=== PATIENT | female | born 1935 | race Caucasian/White ===

== ENCOUNTER → 2019-02-08 | Outpatient (CLI) | payer MEDICARE, BC ==
--- NOTE | 2019-02-09 10:31 | ECHOF ---
Referral Reason:I35.0 nonrheumatic aortic stenosis MEASUREMENTS -------- HEIGHT: 167.6 cm WEIGHT: 94.3 kg BP: RVIDd: 2.7 cm (< 3.3) IVSd: 1.4 cm (0.6 - 1.1) LVIDd: 3.6 cm (3.9 - 5.3) LVPWd: 1.4 cm (0.6 - 1.1) IVSs: 1.7 cm LVIDs: 1.5 cm LVPWs: 2.1 cm LAESV Index (A-L): 23.59 ml/m Ao Diam: 1.4 cm (2.0 - 3.7) AV Cusp: 1.1 cm (1.5 - 2.6) LA Diam: 2.9 cm (2.7 - 3.8) MV EXCURSION: 10.629 mm (> 18.000) MV EF SLOPE: 85 mm/s (70 - 150) EPSS: 0.2 cm MV E Fernando: 1.05 m/s MV DecT: 243 ms MV A Fernando: 1.24 m/s MV E/A Ratio: 0.84 AV maxP.80 mmHg AV meanP.46 mmHg RAP: 5.00 mmHg RVSP: 21.31 mmHg TAPSE: 23.43 mm FINDINGS -------- Sinus rhythm. This was a technically adequate study. The left ventricular size is normal. There is moderate concentric left ventricular hypertrophy. O verall left ventricular systolic function is normal with, an EF between 55 - 60 %. The right ventricle is normal in size. Normal LA size by volume 22+/-6 ml/m2. The right atrial size is normal. There is mild aortic valve sclerosis. There is mild aortic stenosis present. Peak/mean gradient a cross the Aortic Valve is 35.80mmHg / 20.46mmHg. Mild mitral annular calcification present. Mild mitral regurgitation is present. The tricuspid valve appears structurally normal. Mild tricuspid regurgitation present. Right vent ricular systolic pressure is normal at < 35 mmHg. The right ventricular systolic pressure, as measu red by Doppler, is 21.31mmHg. There is no pulmonic regurgitation present. The aortic root size is normal. Normal inferior vena cava with normal inspiratory collapse consistent with estimated right atrial pre ssure of 5 mmHg. There is no pericardial effusion. CONCLUSIONS -------- 1. Sinus rhythm. 2. The left ventricular size is normal. 3. There is moderate concentric left ventricular hypertrophy. 4. Overall left ventricular systolic function is normal with, an EF between 55 - 60 %. 5. Normal LA size by volume 22+/-6 ml/m2. 6. There is mild aortic valve sclerosis. 7. There is mild aortic stenosis present. 8. Peak/mean gradient across the Aortic Valve is 35.80mmHg / 20.46mmHg. 9. Mild mitral annular calcification present. 10. Mild mitral regurgitation is present. 11. Mild tricuspid regurgitation present. 12. Right ventricular systolic pressure is normal at < 35 mmHg. 13. There is no pulmonic regurgitation present. 14. There is no pericardial effusion. TEAM PRIMARY CARE PHYSICIAN: Gabby Moctezuma RDCS
== END | disposition home or self-care (01) ==
LOC: RADECHMAIN 12:55
PROVIDERS: ATTEND Internal Medicine
DX: I08.3 Combined rheumatic disorders of mitral, aortic and tricuspid valves (principal)
CPT/HCPCS: 93306

== ENCOUNTER → 2020-10-16 | Outpatient (CLI) | payer MEDICARE, BC ==
--- NOTE | 2020-10-17 10:41 | ECHOF ---
Referral Reason:I35.0 Nonrheumatic aortic (valve) stenosis MEASUREMENTS -------- HEIGHT: 167.6 cm WEIGHT: 90.7 kg BP: IVSd: 1.4 cm (0.6 - 1.1) LVIDd: 3.5 cm (3.9 - 5.3) LVPWd: 1.7 cm (0.6 - 1.1) IVSs: 2.0 cm LVIDs: 1.8 cm LVPWs: 2.0 cm LAESV Index (A-L): 13.46 ml/m Ao Diam: 3.3 cm (2.0 - 3.7) AV Cusp: 1.0 cm (1.5 - 2.6) LA Diam: 3.5 cm (2.7 - 3.8) MV EXCURSION: 14.230 mm (> 18.000) MV EF SLOPE: 65 mm/s (70 - 150) EPSS: 1.6 cm MV E Fernando: 0.99 m/s MV DecT: 341 ms MV A Fernando: 1.37 m/s MV E/A Ratio: 0.72 AV maxP.18 mmHg AV meanP.80 mmHg RAP: 5.00 mmHg RVSP: 40.13 mmHg FINDINGS -------- This was a technically adequate study. The left ventricular size is normal. There is moderate concentric left ventricular hypertrophy. O verall left ventricular systolic function is normal with, an EF between 55 - 60 %. The diastolic fi lling pattern is normal for the age of the patient {E/E'}. The right ventricle is normal in size. The left atrial size is normal. Normal LA size by volume 22+/-6 ml/m2. The right atrial size is normal. Aortic valve is trileaflet and is moderately thickened. There is moderate aortic stenosis present. Peak/mean gradient across the Aortic Valve is 44.18mmHg / 26.80mmHg. The mitral valve is normal. Mild mitral regurgitation is present. The tricuspid valve appears structurally normal. Mild tricuspid regurgitation present. Right vent ricular systolic pressure is normal at < 35 mmHg. There is no pulmonic regurgitation present. The aortic root size is normal. Normal inferior vena cava with normal inspiratory collapse consistent with estimated right atrial pre ssure of 5 mmHg. There is no pericardial effusion. CONCLUSIONS -------- 1. The left ventricular size is normal. 2. There is moderate concentric left ventricular hypertrophy. 3. Overall left ventricular systolic function is normal with, an EF between 55 - 60 %. 4. The diastolic filling pattern is normal for the age of the patient {E/E'} 5. Aortic valve is trileaflet and is moderately thickened. 6. There is moderate aortic stenosis present. 7. Peak/mean gradient across the Aortic Valve is 44.18mmHg / 26.80mmHg. 8. Mild mitral regurgitation is present. 9. Mild tricuspid regurgitation present. 10. There is no pericardial effusion. AIR TABLE OPERATOR: Gabby Moctezuma RDCS
== END | disposition home or self-care (01) ==
LOC: RADECHMAIN 14:28
PROVIDERS: ATTEND Internal Medicine
DX: I08.3 Combined rheumatic disorders of mitral, aortic and tricuspid valves (principal)
CPT/HCPCS: 93306

== ENCOUNTER 2020-11-22 10:31 | Inpatient (IN) | payer MEDICARE, BC ==
[2020-11-22] MEDS ORDERED: SODIUM CHLORIDE 0.9% 500 ML 500 ML IV STA (11:28)
[2020-11-22] MEDS ORDERED: SODIUM CHLORIDE 0.9% 1,000 ML IV STA (11:28)
--- NOTE | 2020-11-22 11:42 | ED ---
Dizziness HPI - General Chief Complaint: Syncope Stated Complaint: Syncope, weakness Time Seen by Provider: 11/22/20 11:04 Source: patient, family, RN notes reviewed Mode of arrival: wheelchair Limitations: no limitations - History of Present Illness Initial Comments: 85-year-old female brought in by family due to a single blood cell this morning. The patient was walking down a hallway at her home when she became lightheaded and passed out for about 10 seconds. No injury sustained. She had thought she heard somebody on a roof. She also does relate that she has some bright red blood per rectum yesterday. None reported today. No abdominal pain she had no palpitations fevers chills nausea vomiting sweats no focal weakness. Patient has had approximately 30 pound weight loss over last 5 weeks on the diet that she's on. MD Complaint: other - Related Data Allergies Allergy/AdvReac Type Severity Reaction Status Date / Time No Known Allergies Allergy Verified 11/22/20 10:52 Review of Systems ROS Statement: Those systems with pertinent positive or pertinent negative responses have been documented in the HPI. ROS Other: All systems not noted in ROS Statement are negative. Past Medical History Past Medical History: Hypertension Additional Past Medical History / Comment(s): poor historian History of Any Multi-Drug Resistant Organisms: None Reported Past Surgical History: Cholecystectomy Smoking Status: Former smoker Past Alcohol Use History: None Reported Past Drug Use History: None Reported General Exam - General Exam Comments Initial Comments: This is a well-developed well-nourished awake alert oriented 3 female Limitations: no limitations General appearance: alert, in no apparent distress Head exam: Present: atraumatic, normocephalic, normal inspection Eye exam: Present: normal appearance, PERRL, EOMI. Absent: scleral icterus, conjunctival injection, periorbital swelling ENT exam: Present: normal exam, mucous membranes moist Neck exam: Present: normal inspection. Absent: tenderness, meningismus, lymphadenopathy Respiratory exam: Present: normal lung sounds bilaterally. Absent: respiratory distress, wheezes, rales, rhonchi, stridor Cardiovascular Exam: Present: regular rate, normal rhythm, normal heart sounds. Absent: systolic murmur, diastolic murmur, rubs, gallop, clicks GI/Abdominal exam: Present: soft, normal bowel sounds. Absent: distended, tenderness, guarding, rebound, rigid Rectal exam: Present: normal inspection, other (Brown colored stool Hemoccult pending) Extremities exam: Present: normal inspection, full ROM, normal capillary refill. Absent: tenderness, pedal edema, joint swelling, calf tenderness Back exam: Present: normal inspection Neurological exam: Present: alert, oriented X3, CN II-XII intact Psychiatric exam: Present: normal affect, normal mood Skin exam: Present: warm, dry, intact, normal color. Absent: rash Course Vital Signs 11/22/20 11/22/20 10:46 11:28 Pulse Rate 68 63 Pulse Rate [ 63 Sitting Pulse Oximetery] Respiratory 18 18 Rate Blood Pressure 113/68 109/54 O2 Sat by Pulse 96 97 Oximetry EKG Findings - EKG Results: EKG: interpreted by KAM, sinus rhythm (Sinus rhythm with frequent ABCs unifocal. Ventricular rate 69. Interval 148 QRS duration 72 QT since QTC 410/439 low-voltage QRS) Medical Decision Making - Medical Decision Making I did discuss findings with the patient she will be admitted or IV fluids IV antibiotics is with Dr. Lucero - Lab Data Result diagrams: 11/22/20 12:00 11/22/20 12:00 Lab Results 11/22/20 11/22/20 11/22/20 Range/Units 12:00 12:00 12:00 WBC 13.2 H (3.8-10.6) k/uL RBC 5.38 (3.80-5.40) m/uL Hgb 16.8 H (11.4-16.0) gm/dL Hct 51.1 H (34.0-46.0) % MCV 94.8 (80.0-100.0) fL MCH 31.2 (25.0-35.0) pg MCHC 32.9 (31.0-37.0) g/dL RDW 13.7 (11.5-15.5) % Plt Count 247 (150-450) k/uL MPV 10.1 Neutrophils % 74 % Lymphocytes % 17 % Monocytes % 6 % Eosinophils % 1 % Basophils % 1 % Neutrophils # 9.8 H (1.3-7.7) k/uL Lymphocytes # 2.2 (1.0-4.8) k/uL Monocytes # 0.8 (0-1.0) k/uL Eosinophils # 0.1 (0-0.7) k/uL Basophils # 0.1 (0-0.2) k/uL PT 10.3 (9.0-12.0) sec INR 1.0 (<1.2) APTT 22.6 (22.0-30.0) sec D-Dimer 0.73 H (<0.60) mg/L FEU Sodium (137-145) mmol/L Potassium (3.5-5.1) mmol/L Chloride (98-107) mmol/L Carbon Dioxide (22-30) mmol/L Anion Gap mmol/L BUN (7-17) mg/dL Creatinine (0.52-1.04) mg/dL Est GFR (CKD-EPI)AfAm (>60 ml/min/1.73 sqM) Est GFR (CKD-EPI)NonAf (>60 ml/min/1.73 sqM) Glucose (74-99) mg/dL Calcium (8.4-10.2) mg/dL Magnesium (1.6-2.3) mg/dL Total Bilirubin (0.2-1.3) mg/dL AST (14-36) U/L ALT (4-34) U/L Alkaline Phosphatase (38-126) U/L Troponin I (0.000-0.034) ng/mL Total Protein (6.3-8.2) g/dL Albumin (3.5-5.0) g/dL Urine Color Urine Appearance (Clear) Urine pH (5.0-8.0) Ur Specific Howells (1.001-1.035) Urine Protein (Negative) Urine Glucose (UA) (Negative) Urine Ketones (Negative) Urine Blood (Negative) Urine Nitrite (Negative) Urine Bilirubin (Negative) Urine Urobilinogen (<2.0) mg/dL Ur Leukocyte Esterase (Negative) Urine RBC (0-5) /hpf Urine WBC (0-5) /hpf Urine WBC Clumps (None) /hpf Ur Squamous Epith Cells (0-4) /hpf Urine Bacteria (None) /hpf Hyaline Casts (0-2) /lpf Urine Mucus (None) /hpf Urine Yeast (Budding) (None) /hpf Stool Occult Blood Negative (Negative) 11/22/20 11/22/20 11/22/20 Range/Units 12:00 12:00 12:00 WBC (3.8-10.6) k/uL RBC (3.80-5.40) m/uL Hgb (11.4-16.0) gm/dL Hct (34.0-46.0) % MCV (80.0-100.0) fL MCH (25.0-35.0) pg MCHC (31.0-37.0) g/dL RDW (11.5-15.5) % Plt Count (150-450) k/uL MPV Neutrophils % % Lymphocytes % % Monocytes % % Eosinophils % % Basophils % % Neutrophils # (1.3-7.7) k/uL Lymphocytes # (1.0-4.8) k/uL Monocytes # (0-1.0) k/uL Eosinophils # (0-0.7) k/uL Basophils # (0-0.2) k/uL PT (9.0-12.0) sec INR (<1.2) APTT (22.0-30.0) sec D-Dimer (<0.60) mg/L FEU Sodium 131 L (137-145) mmol/L Potassium 5.1 (3.5-5.1) mmol/L Chloride 94 L (98-107) mmol/L Carbon Dioxide 24 (22-30) mmol/L Anion Gap 13 mmol/L BUN 59 H (7-17) mg/dL Creatinine 1.62 H (0.52-1.04) mg/dL Est GFR (CKD-EPI)AfAm 33 (>60 ml/min/1.73 sqM) Est GFR (CKD-EPI)NonAf 29 (>60 ml/min/1.73 sqM) Glucose 91 (74-99) mg/dL Calcium 10.0 (8.4-10.2) mg/dL Magnesium 2.3 (1.6-2.3) mg/dL Total Bilirubin 0.9 (0.2-1.3) mg/dL AST 40 H (14-36) U/L ALT 47 H (4-34) U/L Alkaline Phosphatase 143 H (38-126) U/L Troponin I <0.012 (0.000-0.034) ng/mL Total Protein 6.8 (6.3-8.2) g/dL Albumin 4.0 (3.5-5.0) g/dL Urine Color Yellow Urine Appearance Cloudy H (Clear) Urine pH 5.0 (5.0-8.0) Ur Specific Howells 1.011 (1.001-1.035) Urine Protein Trace H (Negative) Urine Glucose (UA) Negative (Negative) Urine Ketones 1+ H (Negative) Urine Blood Trace H (Negative) Urine Nitrite Positive H (Negative) Urine Bilirubin Negative (Negative) Urine Urobilinogen <2.0 (<2.0) mg/dL Ur Leukocyte Esterase Large H (Negative) Urine RBC 7 H (0-5) /hpf Urine WBC >182 H (0-5) /hpf Urine WBC Clumps Many H (None) /hpf Ur Squamous Epith Cells 1 (0-4) /hpf Urine Bacteria Many H (None) /hpf Hyaline Casts 10 H (0-2) /lpf Urine Mucus Rare H (None) /hpf Urine Yeast (Budding) Rare H (None) /hpf Stool Occult Blood (Negative) - Radiology Data Radiology results: report reviewed (Imaging reviewed no definite acute findings), image reviewed Disposition Clinical Impression: Syncope and collapse, Urinary tract infection, Acute kidney injury, Dehydration Disposition: ADMITTED IP TO THIS [facility] Condition: Fair Referrals: Usha Novak MD [Primary Care Provider] - 1-2 days
--- NOTE | 2020-11-22 12:26 | XR ---
EXAMINATION TYPE: XR chest 2V DATE OF EXAM: 11/22/2020 COMPARISON: None HISTORY: Syncope TECHNIQUE: Frontal and lateral views of the chest are obtained. FINDINGS: There is no focal air space opacity, pleural effusion, or pneumothorax seen. The cardiac silhouette size is within normal limits. The osseous structures are intact. IMPRESSION: No acute cardiopulmonary process.
[2020-11-22 12:38] LABS: Basophils # (A) 0.1 k/uL (0-0.2); Basophils % (A) 1 %; Eosinophils # (A) 0.1 k/uL (0-0.7); Eosinophils % (A) 1 %; HCT 51.1 % (34.0-46.0); HGB 16.8 gm/dL (11.4-16.0); Lymphocytes # (A) 2.2 k/uL (1.0-4.8); Lymphocytes % (A) 17 %; MCH 31.2 pg (25.0-35.0); MCHC 32.9 g/dL (31.0-37.0); MCV 94.8 fL (80.0-100.0); Mean Platelet Volume 10.1; Monocytes # (A) 0.8 k/uL (0-1.0); Monocytes % (A) 6 %; Neutrophils # (A) 9.8 k/uL (1.3-7.7); Neutrophils % (A) 74 %; Platelet Count 247 k/uL (150-450); RBC 5.38 m/uL (3.80-5.40); RDW 13.7 % (11.5-15.5); WBC 13.2 k/uL (3.8-10.6)
[2020-11-22 12:47] LABS: Magnesium 2.3 mg/dL (1.6-2.3); Potassium 5.1 mmol/L (3.5-5.1); Total Bilirubin 0.9 mg/dL (0.2-1.3); Total Protein 6.8 g/dL (6.3-8.2)
[2020-11-22 12:57] LABS: Partial Thromboplastin Time 22.6 sec (22.0-30.0); Prothrombin Time 10.3 sec (9.0-12.0)
[2020-11-22 13:49] LABS: Appearance,Urine Cloudy (Clear); Bacteria,Urine Many /hpf; Bilirubin,Urine Negative (Negative); Blood,Urine Trace (Negative); Budding Yeast,Urine Rare /hpf; Color,Urine Yellow; Glucose,Urine (UA) Negative (Negative); Hyaline Casts,Urine 10 /lpf (0-2); Ketones,Urine 1+ (Negative); Leukocyte Esterase,Urine Large (Negative); Mucus,Urine Rare /hpf; Nitrite,Urine Positive (Negative); Protein,Urine Trace (Negative); RBC,Urine 7 /hpf (0-5); Specific Gravity,Urine 1.011 (1.001-1.035); Squamous Epithelial Cell,Urine 1 /hpf (0-4); Urobilinogen,Urine <2.0 mg/dL (<2.0); WBC,Urine >182 /hpf (0-5)
[2020-11-22] MEDS ORDERED: cefTRIAXone IN SWFI 1,000 MG/10 ML SYRINGE IVP STA (14:43)
[2020-11-22] MEDS ORDERED: ACETAMINOPHEN TAB 325 MG TAB PO PRN (14:54)
[2020-11-22] MEDS ORDERED: NALOXONE 0.4 MG/ML 1 ML VIAL IV PRN (14:54)
[2020-11-22] MEDS: SODIUM CHLORIDE 0.9% 1,000 ML IV SCH ×2 (15:38→23:31)
--- NOTE | 2020-11-22 17:47 | P.HPIM ---
History of Present Illness H&P Date: 11/22/20 Chief Complaint: Syncope 85-year-old woman with medical history of hypertension, hyperlipidemia, hypothyroidism presented after syncopal episode. Patient seems to perseverate on the fact that her primary care provider put her on a note carb diet and the patient has lost 30 pounds and feels weak from this. However, it seems according to documentation, her family brought her in after she had a syncopal episode at home. Patient was then felt to have a urinary tract infection of the emergency room, prompting admission for observation. Patient denies fevers, chills, vomiting, abdominal pain, dysuria, dyschezia, constipation, diarrhea, numbness of extremity is. Patient does report some nausea. Review of Systems All Systems reviewed and pertinent positives and negatives noted in HPI, all other symptoms are negative Past Medical History Past Medical History: Hypertension Additional Past Medical History / Comment(s): poor historian History of Any Multi-Drug Resistant Organisms: None Reported Past Surgical History: Cholecystectomy Smoking Status: Former smoker Past Alcohol Use History: None Reported Past Drug Use History: None Reported Medications and Allergies Home Medications Medication Instructions Recorded Confirmed Type Ascorbic Acid [Vitamin C] 500 mg PO DAILY 11/22/20 11/22/20 History Aspirin EC [Ecotrin Low Dose] 81 mg PO DAILY 11/22/20 11/22/20 History Atorvastatin [Lipitor] 40 mg PO DAILY 11/22/20 11/22/20 History Cholecalciferol [Vitamin D3 (25 50 mcg PO DAILY 11/22/20 11/22/20 History Mcg = 1000 Iu)] Levothyroxine Sodium 88 mcg PO MOTUWETHFR 11/22/20 11/22/20 History Levothyroxine Sodium 132 mcg PO SUSA 11/22/20 11/22/20 History Losartan Potassium 100 mg PO DAILY 11/22/20 11/22/20 History Metoprolol Succinate [Toprol XL] 25 mg PO DAILY 11/22/20 11/22/20 History Multivitamins, Thera [Multivitamin 1 tab PO DAILY 11/22/20 11/22/20 History (formulary)] Spironolactone [Aldactone] 50 mg PO DAILY 11/22/20 11/22/20 History hydroCHLOROthiazide 25 mg PO DAILY 11/22/20 11/22/20 History Allergies Allergy/AdvReac Type Severity Reaction Status Date / Time No Known Allergies Allergy Verified 11/22/20 15:11 Physical Exam Osteopathic Statement: *. No significant issues noted on an osteopathic structural exam other than those noted in the History and Physical/Consult. Vitals: Vital Signs Temp Pulse Pulse Pulse Resp BP BP 11/22/20 17:17 97.6 F 84 123/73 11/22/20 16:26 73 18 101/60 11/22/20 11:28 63 63 18 109/54 11/22/20 10:46 68 18 113/68 Pulse Ox 11/22/20 17:17 96 11/22/20 16:26 95 11/22/20 11:28 97 11/22/20 10:46 96 Intake and Output 11/22/20 11/22/20 11/22/20 06:59 14:59 22:59 Other: Weight 78.018 kg Gen: awake, alert HEENT: normocephalic, atraumatic, good hearing acuity, moist mucous membranes Resp: good air exchange, breathing comfortably with no accessory muscle use, clear to auscultation bilaterally CVS: good distal perfusion x 4, regular rhythm, normal rate, no murmurs GI: soft, NTTP, ND : no SPT, no CVAT, lees catheter not present MSK: no pitting edema, no clubbing Neuro: non-focal, moving all extremities Psych: cooperative, euthymic mood Results CBC & Chem 7: 11/22/20 12:00 11/22/20 12:00 Labs: Abnormal Lab Results - Last 24 Hours (Table) 11/22/20 11/22/20 11/22/20 Range/Units 12:00 12:00 12:00 WBC 13.2 H (3.8-10.6) k/uL Hgb 16.8 H (11.4-16.0) gm/dL Hct 51.1 H (34.0-46.0) % Neutrophils # 9.8 H (1.3-7.7) k/uL D-Dimer 0.73 H (<0.60) mg/L FEU Sodium (137-145) mmol/L Chloride (98-107) mmol/L BUN (7-17) mg/dL Creatinine (0.52-1.04) mg/dL AST (14-36) U/L ALT (4-34) U/L Alkaline Phosphatase (38-126) U/L Urine Appearance Cloudy H (Clear) Urine Protein Trace H (Negative) Urine Ketones 1+ H (Negative) Urine Blood Trace H (Negative) Urine Nitrite Positive H (Negative) Ur Leukocyte Esterase Large H (Negative) Urine RBC 7 H (0-5) /hpf Urine WBC >182 H (0-5) /hpf Urine WBC Clumps Many H (None) /hpf Urine Bacteria Many H (None) /hpf Hyaline Casts 10 H (0-2) /lpf Urine Mucus Rare H (None) /hpf Urine Yeast (Budding) Rare H (None) /hpf 11/22/20 Range/Units 12:00 WBC (3.8-10.6) k/uL Hgb (11.4-16.0) gm/dL Hct (34.0-46.0) % Neutrophils # (1.3-7.7) k/uL D-Dimer (<0.60) mg/L FEU Sodium 131 L (137-145) mmol/L Chloride 94 L (98-107) mmol/L BUN 59 H (7-17) mg/dL Creatinine 1.62 H (0.52-1.04) mg/dL AST 40 H (14-36) U/L ALT 47 H (4-34) U/L Alkaline Phosphatase 143 H (38-126) U/L Urine Appearance (Clear) Urine Protein (Negative) Urine Ketones (Negative) Urine Blood (Negative) Urine Nitrite (Negative) Ur Leukocyte Esterase (Negative) Urine RBC (0-5) /hpf Urine WBC (0-5) /hpf Urine WBC Clumps (None) /hpf Urine Bacteria (None) /hpf Hyaline Casts (0-2) /lpf Urine Mucus (None) /hpf Urine Yeast (Budding) (None) /hpf Assessment and Plan Assessment: Complicated urinary tract infection Acute kidney injury Syncope Dehydration -Admit to observation -IV fluids -Ceftriaxone -Tylenol -Follow up urine culture -Daily BMP -Orthostatics Hypertension Hyperlipidemia Hypothyroidism -Home medications reviewed and reconciled Patient is a full code
[2020-11-23] MEDS: SODIUM CHLORIDE 0.9% 1,000 ML IV SCH ×2 (05:40→14:21)
[2020-11-23] MEDS ORDERED: LEVOTHYROXINE 88 MCG TAB PO SCH (06:30)
[2020-11-23] MEDS: ASCORBIC ACID 500 MG TAB PO SCH (07:50)
[2020-11-23] MEDS: ATORVASTATIN 40 MG TAB PO SCH (07:50)
[2020-11-23] MEDS: ASPIRIN 81 MG PO SCH (07:50)
[2020-11-23] MEDS: MULTIVITAMINS, THERA 1 EACH TAB PO SCH (07:50)
[2020-11-23] MEDS: SPIRONOLACTONE 25 MG TAB PO SCH (07:50)
[2020-11-23] MEDS: CHOLECALCIFEROL 25 MCG (1000 IU) TABLET PO SCH (07:51)
[2020-11-23] MEDS: METOPROLOL SUCCINATE (ER) 25 MG TAB.ER.24H PO SCH (07:51)
[2020-11-23] MEDS ORDERED: cefTRIAXone IN SWFI 1,000 MG/10 ML SYRINGE IVP SCH (09:00)
[2020-11-23] MEDS: LOSARTAN 50 MG TAB PO SCH (09:34)
--- NOTE | 2020-11-23 10:42 | P.PN ---
Subjective Progress Note Date: 11/23/20 No new complaints today. Pt ambulating to and from bathroom well. She was able to eat 50% of breakfast. Objective - Vital Signs Vital signs: Vital Signs Temp 97.7 F 11/23/20 07:00 Pulse 73 11/23/20 07:00 Resp 18 11/23/20 07:00 BP 111/71 11/23/20 07:00 Pulse Ox 94 L 11/23/20 07:00 Intake & Output 11/22/20 11/23/20 11/23/20 18:59 06:59 18:59 Intake Total 120 200 120 Balance 120 200 120 Weight 78.018 kg Intake: Oral 120 200 120 Other: Voiding Method Toilet Toilet # Voids 1 - Exam Gen: awake, alert HEENT: normocephalic, atraumatic, good hearing acuity, moist mucous membranes Resp: good air exchange, breathing comfortably with no accessory muscle use, clear to auscultation bilaterally CVS: good distal perfusion x 4, regular rhythm, normal rate, no murmurs GI: soft, NTTP, ND : no SPT, no CVAT, lees catheter not present MSK: no pitting edema, no clubbing Neuro: non-focal, moving all extremities Psych: cooperative, euthymic mood - Labs CBC & Chem 7: 11/22/20 12:00 11/22/20 12:00 Labs: Abnormal Lab Results - Last 24 Hours (Table) 11/22/20 11/22/20 11/22/20 Range/Units 12:00 12:00 12:00 WBC 13.2 H (3.8-10.6) k/uL Hgb 16.8 H (11.4-16.0) gm/dL Hct 51.1 H (34.0-46.0) % Neutrophils # 9.8 H (1.3-7.7) k/uL D-Dimer 0.73 H (<0.60) mg/L FEU Sodium (137-145) mmol/L Chloride (98-107) mmol/L BUN (7-17) mg/dL Creatinine (0.52-1.04) mg/dL AST (14-36) U/L ALT (4-34) U/L Alkaline Phosphatase (38-126) U/L Urine Appearance Cloudy H (Clear) Urine Protein Trace H (Negative) Urine Ketones 1+ H (Negative) Urine Blood Trace H (Negative) Urine Nitrite Positive H (Negative) Ur Leukocyte Esterase Large H (Negative) Urine RBC 7 H (0-5) /hpf Urine WBC >182 H (0-5) /hpf Urine WBC Clumps Many H (None) /hpf Urine Bacteria Many H (None) /hpf Hyaline Casts 10 H (0-2) /lpf Urine Mucus Rare H (None) /hpf Urine Yeast (Budding) Rare H (None) /hpf 11/22/20 Range/Units 12:00 WBC (3.8-10.6) k/uL Hgb (11.4-16.0) gm/dL Hct (34.0-46.0) % Neutrophils # (1.3-7.7) k/uL D-Dimer (<0.60) mg/L FEU Sodium 131 L (137-145) mmol/L Chloride 94 L (98-107) mmol/L BUN 59 H (7-17) mg/dL Creatinine 1.62 H (0.52-1.04) mg/dL AST 40 H (14-36) U/L ALT 47 H (4-34) U/L Alkaline Phosphatase 143 H (38-126) U/L Urine Appearance (Clear) Urine Protein (Negative) Urine Ketones (Negative) Urine Blood (Negative) Urine Nitrite (Negative) Ur Leukocyte Esterase (Negative) Urine RBC (0-5) /hpf Urine WBC (0-5) /hpf Urine WBC Clumps (None) /hpf Urine Bacteria (None) /hpf Hyaline Casts (0-2) /lpf Urine Mucus (None) /hpf Urine Yeast (Budding) (None) /hpf Assessment and Plan Assessment: Complicated urinary tract infection Acute kidney injury Syncope Dehydration -Admit to observation -IV fluids -Ceftriaxone -Tylenol -Follow up urine culture -Daily BMP -Orthostatics Hypertension Hyperlipidemia Hypothyroidism -Home medications reviewed and reconciled Patient is a full code
[2020-11-24] MEDS: SODIUM CHLORIDE 0.9% 1,000 ML IV SCH ×4 (00:26→22:01)
[2020-11-24] MEDS: METOPROLOL SUCCINATE (ER) 25 MG TAB.ER.24H PO SCH (08:15)
[2020-11-24] MEDS: ATORVASTATIN 40 MG TAB PO SCH (08:15)
[2020-11-24] MEDS: SPIRONOLACTONE 25 MG TAB PO SCH (08:15)
[2020-11-24] MEDS: LEVOTHYROXINE 88 MCG TAB PO SCH (08:15)
[2020-11-24] MEDS: ASPIRIN 81 MG PO SCH (08:15)
[2020-11-24] MEDS: LOSARTAN 50 MG TAB PO SCH (08:16)
[2020-11-24] MEDS: CHOLECALCIFEROL 25 MCG (1000 IU) TABLET PO SCH (08:16)
[2020-11-24] MEDS: MULTIVITAMINS, THERA 1 EACH TAB PO SCH (08:16)
[2020-11-24] MEDS: ASCORBIC ACID 500 MG TAB PO SCH (08:16)
--- NOTE | 2020-11-24 14:06 | P.PN ---
Subjective Progress Note Date: 11/24/20 No new complaints today. Pt ambulating to and from bathroom well with min assist, but instability of gait. PT consult pending. Pt would likely benefit from supervision on dc with either family or HALFWAY. Family discussing this amongst themselves, also pending PT evaluation for further consideration. Objective - Vital Signs Vital signs: Vital Signs Temp 97.5 F L 11/24/20 07:00 Pulse 67 11/24/20 07:00 Resp 16 11/24/20 08:00 BP 109/66 11/24/20 07:00 Pulse Ox 94 L 11/24/20 07:00 Intake & Output 11/23/20 11/24/20 11/24/20 18:59 06:59 18:59 Intake Total 360 300 416 Balance 360 300 416 Intake: Oral 360 300 416 Other: Voiding Method Toilet Toilet # Voids 2 3 - Exam Gen: awake, alert HEENT: normocephalic, atraumatic, good hearing acuity, moist mucous membranes Resp: good air exchange, breathing comfortably with no accessory muscle use, clear to auscultation bilaterally CVS: good distal perfusion x 4, regular rhythm, normal rate, no murmurs GI: soft, NTTP, ND : no SPT, no CVAT, lees catheter not present MSK: no pitting edema, no clubbing Neuro: non-focal, moving all extremities Psych: cooperative, euthymic mood - Labs CBC & Chem 7: 11/22/20 12:00 11/22/20 12:00 Labs: Microbiology - Last 24 Hours (Table) 11/22/20 12:00 Urine Culture - Preliminary Urine,Voided Assessment and Plan Assessment: Complicated urinary tract infection Acute kidney injury Syncope Dehydration -Admit to observation -IV fluids -Ceftriaxone -Tylenol -Follow up urine culture -Daily BMP -Orthostatics -PT consult Hypertension Hyperlipidemia Hypothyroidism -Home medications reviewed and reconciled Patient is a full code
[2020-11-25 01:54] VITALS: TEMP 97.5
[2020-11-25] MEDS: SODIUM CHLORIDE 0.9% 1,000 ML IV SCH ×2 (04:01→12:59)
[2020-11-25] MEDS: LEVOTHYROXINE 88 MCG TAB PO SCH (06:20)
[2020-11-25 07:56] VITALS: PULSE 71; RESP 18
[2020-11-25] MEDS: SPIRONOLACTONE 25 MG TAB PO SCH (09:48)
[2020-11-25] MEDS: LOSARTAN 50 MG TAB PO SCH (09:49)
[2020-11-25] MEDS: ATORVASTATIN 40 MG TAB PO SCH (09:50)
[2020-11-25] MEDS: ASCORBIC ACID 500 MG TAB PO SCH (09:50)
[2020-11-25] MEDS: CHOLECALCIFEROL 25 MCG (1000 IU) TABLET PO SCH (09:50)
[2020-11-25] MEDS: METOPROLOL SUCCINATE (ER) 25 MG TAB.ER.24H PO SCH (09:50)
[2020-11-25] MEDS: ASPIRIN 81 MG PO SCH (09:51)
[2020-11-25] MEDS: MULTIVITAMINS, THERA 1 EACH TAB PO SCH (09:51)
[2020-11-25 10:03] VITALS: BP 121/82
--- NOTE | 2020-11-25 14:10 | P.PN ---
Subjective Progress Note Date: 11/25/20 No new complaints today. PT eval recommending SNF. Pending placement. Objective - Vital Signs Vital signs: Vital Signs Temp 97.5 F L 11/25/20 07:00 Pulse 71 11/25/20 08:00 Resp 18 11/25/20 08:00 BP 121/82 11/25/20 10:03 Pulse Ox 96 11/25/20 07:00 Intake & Output 11/24/20 11/25/20 11/25/20 18:59 06:59 18:59 Intake Total 596 Balance 596 Intake: Oral 596 Other: Voiding Method Toilet Toilet Toilet # Voids 2 - Exam Gen: awake, alert HEENT: normocephalic, atraumatic, good hearing acuity, moist mucous membranes Resp: good air exchange, breathing comfortably with no accessory muscle use, clear to auscultation bilaterally CVS: good distal perfusion x 4, regular rhythm, normal rate, no murmurs GI: soft, NTTP, ND : no SPT, no CVAT, lees catheter not present MSK: no pitting edema, no clubbing Neuro: non-focal, moving all extremities Psych: cooperative, euthymic mood - Labs CBC & Chem 7: 11/22/20 12:00 11/22/20 12:00 Labs: Microbiology - Last 24 Hours (Table) 11/22/20 12:00 Urine Culture - Preliminary Urine,Voided Gram Neg Bacilli Assessment and Plan Assessment: Complicated urinary tract infection Acute kidney injury Syncope Dehydration -Admit to observation -IV fluids -Ceftriaxone -Tylenol -Follow up urine culture = GNR, speciation and sensitivities pending -Daily BMP -Orthostatics -PT consult Hypertension Hyperlipidemia Hypothyroidism -Home medications reviewed and reconciled Patient is a full code
--- NOTE | 2020-11-25 15:41 | P.DS ---
Providers Date of admission: 11/24/20 09:46 Expected date of discharge: 11/25/20 Attending physician: Suellen Lucero MD Primary care physician: Usha Novak MD Hospital Course: Complicated urinary tract infection Acute kidney injury Syncope Dehydration -Admitted to observation. Found to have UTI. Tx with IVF and ceftriaxone. HAMLET resolved with fluids. Pts UCx showed GNRs, but pending speciation. She was d/c'd on cefdinir to complete a 7 day course of abx. Pt was consulted and given patient's weakness, gait instability, recommended SNF for rehab. Hypertension Hyperlipidemia Hypothyroidism -Home medications reviewed and reconciled; notably, we discontinued her home hctz due to dehydration and fall risks. Patient Condition at Discharge: Good Plan - Discharge Summary Discharge Rx Participant: Yes New Discharge Prescriptions: New Cefdinir [Omnicef] 300 mg PO Q12HR #8 cap Continue Aspirin EC [Ecotrin Low Dose] 81 mg PO DAILY Ascorbic Acid [Vitamin C] 500 mg PO DAILY Spironolactone [Aldactone] 50 mg PO DAILY Atorvastatin [Lipitor] 40 mg PO DAILY Levothyroxine Sodium 88 mcg PO MOTUWETHFR Multivitamins, Thera [Multivitamin (formulary)] 1 tab PO DAILY Metoprolol Succinate [Toprol XL] 25 mg PO DAILY Cholecalciferol [Vitamin D3 (25 Mcg = 1000 Iu)] 50 mcg PO DAILY Losartan Potassium 100 mg PO DAILY Levothyroxine Sodium 132 mcg PO SUSA Discontinued hydroCHLOROthiazide 25 mg PO DAILY Discharge Medication List Ascorbic Acid [Vitamin C] 500 mg PO DAILY 11/22/20 [History] Aspirin EC [Ecotrin Low Dose] 81 mg PO DAILY 11/22/20 [History] Atorvastatin [Lipitor] 40 mg PO DAILY 11/22/20 [History] Cholecalciferol [Vitamin D3 (25 Mcg = 1000 Iu)] 50 mcg PO DAILY 11/22/20 [History] Levothyroxine Sodium 88 mcg PO MOTUWETHFR 11/22/20 [History] Levothyroxine Sodium 132 mcg PO SUSA 11/22/20 [History] Losartan Potassium 100 mg PO DAILY 11/22/20 [History] Metoprolol Succinate [Toprol XL] 25 mg PO DAILY 11/22/20 [History] Multivitamins, Thera [Multivitamin (formulary)] 1 tab PO DAILY 11/22/20 [History] Spironolactone [Aldactone] 50 mg PO DAILY 11/22/20 [History] Cefdinir [Omnicef] 300 mg PO Q12HR #8 cap 11/25/20 [Rx] Follow up Appointment(s)/Referral(s): Usha Novak MD [Primary Care Provider] - 1-2 days Discharge Disposition: TRANSFER TO SNF/ECF
== END 2020-11-25 16:34 | DRG 690 ==
LOC: EC 10:31 → 6NMEDSUR 15:18 → OBSVTOIN 11-24 09:46
PROVIDERS: ADMIT Internal Medicine; ATTEND Internal Medicine
DX: N39.0 Urinary tract infection, site not specified (principal); N17.9 Acute kidney failure, unspecified; K62.5 Hemorrhage of anus and rectum; B96.89 Other specified bacterial agents as the cause of diseases classified elsewhere; Z20.822 Contact with and (suspected) exposure to COVID-19; R55 Syncope and collapse; E86.0 Dehydration; I10 Essential (primary) hypertension; E78.5 Hyperlipidemia, unspecified; E03.9 Hypothyroidism, unspecified; R53.1 Weakness; R26.9 Unspecified abnormalities of gait and mobility; Z79.890 Hormone replacement therapy; Z79.82 Long term (current) use of aspirin; Z79.899 Other long term (current) drug therapy; Z87.891 Personal history of nicotine dependence; Z90.49 Acquired absence of other specified parts of digestive tract
CPT/HCPCS: 36415; 71046; 80053; 81001; 82272; 83735; 84484; 85025; 85379; 85610; 85730; 86850; 86900; 86901; 87077; 87086; 87186; 87635; 93005; 96360; 96361; 99285

== ENCOUNTER 2021-10-12 11:30 | Inpatient (IN) | payer MEDICARE, OTHER ==
[2021-10-12] MEDS ORDERED: methylPREDNISolone SOD SUCCI 125 MG/2 ML VIAL IV STA (11:57)
[2021-10-12] MEDS ORDERED: IPRATROPIUM-ALBUTEROL 3 ML NEB INHALATION STA (11:57)
--- NOTE | 2021-10-12 12:16 | ED ---
SOB HPI - General Chief Complaint: Upper Respiratory Infection Stated Complaint: Covid + Time Seen by Provider: 10/12/21 11:49 Source: patient, EMS, RN notes reviewed Mode of arrival: EMS Limitations: no limitations, altered mental status - History of Present Illness Initial Comments: This is an 86-year-old female who presents to the emergency department for difficulty breathing. The patient presents from [facility] via EMS for low oxygen saturation. She tested positive for COVID yesterday. This morning, the staff at [facility] noted her oxygen saturation to be 80%. Patient has been complaining of a productive cough. Patient is not on oxygen at home. She has no respiratory illnesses. Patient later told nursing staff that 2 days ago, she tripped coming out of her apartment and landed on her back and hit the back of her head. She had no dizziness or symptoms prior to the fall and had no loss of consciousness. Patient is not on any blood thinners. Denies any fevers, chills, sore throat, chest pain, palpitations, abdominal pain, nausea, vomiting, diarrhea, or back pain. MD Complaint: cough - Related Data Home Medications Medication Instructions Recorded Confirmed Ascorbic Acid [Vitamin C] 500 mg PO DAILY@0800 11/22/20 10/12/21 Aspirin EC [Ecotrin Low Dose] 81 mg PO DAILY@0800 11/22/20 10/12/21 Atorvastatin [Lipitor] 40 mg PO HS@199911/22/20 10/12/21 Cholecalciferol [Vitamin D3 (25 25 mcg PO DAILY@0800 11/22/20 10/12/21 Mcg = 1000 Iu)] Levothyroxine Sodium 88 mcg PO MOTUWETHFR@199911/22/20 10/12/21 Levothyroxine Sodium 132 mcg PO SUSA@199911/22/20 10/12/21 Losartan Potassium 100 mg PO DAILY@0800 11/22/20 10/12/21 Metoprolol Succinate [Toprol XL] 25 mg PO DAILY@0800 11/22/20 10/12/21 Multivitamins, Thera [Multivitamin 1 tab PO DAILY@0800 11/22/20 10/12/21 (formulary)] Spironolactone [Aldactone] 50 mg PO DAILY@0800 11/22/20 10/12/21 ALPRAZolam [Xanax] 0.5 mg PO HS@199910/12/21 10/12/21 Acetaminophen Tab [Tylenol Tab] 1,000 mg PO Q6HR PRN 10/12/21 10/12/21 Ammonium Lactate Cream [Lac-Hydrin 1 applic TOPICAL BID PRN 10/12/21 10/12/21 12% Cream] Citalopram Hydrobromide [CeleXA] 20 mg PO DAILY@79910/12/21 10/12/21 Cyanocobalamin/Cobamamide [Vitamin 1 tab SL DAILY@79910/12/21 10/12/21 B-12 5,000 Mcg Tab Sl] Loperamide [Imodium] 2 mg PO QID PRN 10/12/21 10/12/21 Melatonin 6 mg PO HS@199910/12/21 10/12/21 Allergies Allergy/AdvReac Type Severity Reaction Status Date / Time No Known Allergies Allergy Verified 10/12/21 14:12 Review of Systems ROS Statement: Those systems with pertinent positive or pertinent negative responses have been documented in the HPI. ROS Other: All systems not noted in ROS Statement are negative. Past Medical History Past Medical History: Hypertension Additional Past Medical History / Comment(s): poor historian History of Any Multi-Drug Resistant Organisms: None Reported Past Surgical History: Cholecystectomy Past Anesthesia/Blood Transfusion Reactions: No Reported Reaction Past Psychological History: No Psychological Hx Reported Smoking Status: Former smoker Past Alcohol Use History: None Reported Past Drug Use History: None Reported - Past Family History Mother Family Medical History: Unable to Obtain General Exam Limitations: no limitations, altered mental status General appearance: alert, in no apparent distress Head exam: Present: atraumatic, normocephalic, normal inspection Neck exam: Present: normal inspection. Absent: tenderness, meningismus, lymphadenopathy Respiratory exam: Present: normal lung sounds bilaterally. Absent: respiratory distress, wheezes, rales, rhonchi, stridor Cardiovascular Exam: Present: regular rate, normal rhythm, normal heart sounds. Absent: systolic murmur, diastolic murmur, rubs, gallop, clicks Neurological exam: Present: alert, oriented X3, CN II-XII intact Psychiatric exam: Present: normal affect, normal mood Skin exam: Present: warm, dry, intact, normal color. Absent: rash Course Vital Signs 10/12/21 10/12/21 10/12/21 11:40 11:55 12:24 Temperature 98.4 F Pulse Rate 65 77 Respiratory 18 20 Rate Blood Pressure 117/50 O2 Sat by Pulse 91 L Oximetry 10/12/21 10/12/21 10/12/21 12:36 12:40 13:35 Temperature Pulse Rate 80 69 64 Respiratory 18 20 Rate Blood Pressure 114/61 113/56 O2 Sat by Pulse 92 L 85 L Oximetry 10/12/21 10/12/21 10/12/21 16:27 18:11 20:17 Temperature 98.4 F 97.6 F Pulse Rate 70 58 L 62 Respiratory 20 18 16 Rate Blood Pressure 117/55 108/55 110/62 O2 Sat by Pulse 89 L 93 L 95 Oximetry 10/12/21 22:32 Temperature Pulse Rate 55 L Respiratory 16 Rate Blood Pressure 110/62 O2 Sat by Pulse 94 L Oximetry Medical Decision Making - Medical Decision Making This is an 86-year-old female who presents to the emergency department for coughing and shortness of breath secondary to COVID-19. Patient given IV Solu- Medrol and DuoNeb was administered. Lab work including a troponin and d-dimer were obtained, all of which were negative. However, the patient continues to be hypoxemic with an oxygen saturation of 85%. Patient is not on oxygen at home. She also has no respiratory illnesses. ABG was obtained to further evaluate the patient's respiratory status. Unfortunately the patient was not taken off of oxygen when this was obtained and the results are not accurate. Patient will be admitted to medicine for hypoxemia. Of note, computed tomography scan of the brain was not obtained, as this fall was 2 days ago and the patient has no changes in mentation, abnormal neurological exam, or other findings to necessitate imaging. This case was discussed in detail with the attending ED physician. Presentation, findings, and treatment plan discussed in detail as well. - Lab Data Result diagrams: 10/13/21 08:54 10/13/21 08:54 Lab Results 10/12/21 10/12/21 10/12/21 Range/Units 12:05 12:05 12:05 WBC 7.6 (3.8-10.6) k/uL RBC 4.54 (3.80-5.40) m/uL Hgb 14.3 (11.4-16.0) gm/dL Hct 45.2 (34.0-46.0) % MCV 99.6 (80.0-100.0) fL MCH 31.6 (25.0-35.0) pg MCHC 31.7 (31.0-37.0) g/dL RDW 13.5 (11.5-15.5) % Plt Count 244 (150-450) k/uL MPV 7.6 Neutrophils % 73 % Lymphocytes % 17 % Monocytes % 6 % Eosinophils % 1 % Basophils % 1 % Neutrophils # 5.5 (1.3-7.7) k/uL Lymphocytes # 1.3 (1.0-4.8) k/uL Monocytes # 0.5 (0-1.0) k/uL Eosinophils # 0.1 (0-0.7) k/uL Basophils # 0.1 (0-0.2) k/uL PT 10.8 (9.0-12.0) sec INR 1.0 (<1.2) APTT 26.7 (22.0-30.0) sec D-Dimer (<0.60) mg/L FEU Sample Site ABG pH (7.35-7.45) ABG pCO2 (35-45) mmHg ABG pO2 (83-108) mmHg ABG HCO3 (21-25) mmol/L ABG Total CO2 (19-24) mmol/L ABG O2 Saturation (94-97) % ABG Base Excess mmol/L ABG Hematocrit (34.0-46.0) % Justin Test Hemoglobin (11.4-16.0) gm/dL FiO2 % Sodium 135 L (137-145) mmol/L Potassium 5.2 H (3.5-5.1) mmol/L Chloride 97 L (98-107) mmol/L Carbon Dioxide 30 (22-30) mmol/L Anion Gap 8 mmol/L BUN 31 H (7-17) mg/dL Creatinine 0.89 (0.52-1.04) mg/dL Est GFR (CKD-EPI)AfAm 68 (>60 ml/min/1.73 sqM) Est GFR (CKD-EPI)NonAf 59 (>60 ml/min/1.73 sqM) Glucose 155 H (74-99) mg/dL Plasma Lactic Acid Keegan (0.7-2.0) mmol/L Calcium 8.4 (8.4-10.2) mg/dL Total Bilirubin 0.6 (0.2-1.3) mg/dL AST 27 (14-36) U/L ALT 27 (4-34) U/L Alkaline Phosphatase 82 (38-126) U/L Troponin I (0.000-0.034) ng/mL Total Protein 5.9 L (6.3-8.2) g/dL Albumin 3.3 L (3.5-5.0) g/dL Coronavirus (PCR) (Not Detectd) 10/12/21 10/12/21 10/12/21 Range/Units 12:05 12:05 12:05 WBC (3.8-10.6) k/uL RBC (3.80-5.40) m/uL Hgb (11.4-16.0) gm/dL Hct (34.0-46.0) % MCV (80.0-100.0) fL MCH (25.0-35.0) pg MCHC (31.0-37.0) g/dL RDW (11.5-15.5) % Plt Count (150-450) k/uL MPV Neutrophils % % Lymphocytes % % Monocytes % % Eosinophils % % Basophils % % Neutrophils # (1.3-7.7) k/uL Lymphocytes # (1.0-4.8) k/uL Monocytes # (0-1.0) k/uL Eosinophils # (0-0.7) k/uL Basophils # (0-0.2) k/uL PT (9.0-12.0) sec INR (<1.2) APTT (22.0-30.0) sec D-Dimer 0.45 (<0.60) mg/L FEU Sample Site ABG pH (7.35-7.45) ABG pCO2 (35-45) mmHg ABG pO2 (83-108) mmHg ABG HCO3 (21-25) mmol/L ABG Total CO2 (19-24) mmol/L ABG O2 Saturation (94-97) % ABG Base Excess mmol/L ABG Hematocrit (34.0-46.0) % Justin Test Hemoglobin (11.4-16.0) gm/dL FiO2 % Sodium (137-145) mmol/L Potassium (3.5-5.1) mmol/L Chloride (98-107) mmol/L Carbon Dioxide (22-30) mmol/L Anion Gap mmol/L BUN (7-17) mg/dL Creatinine (0.52-1.04) mg/dL Est GFR (CKD-EPI)AfAm (>60 ml/min/1.73 sqM) Est GFR (CKD-EPI)NonAf (>60 ml/min/1.73 sqM) Glucose (74-99) mg/dL Plasma Lactic Acid Keegan 1.7 (0.7-2.0) mmol/L Calcium (8.4-10.2) mg/dL Total Bilirubin (0.2-1.3) mg/dL AST (14-36) U/L ALT (4-34) U/L Alkaline Phosphatase (38-126) U/L Troponin I <0.012 (0.000-0.034) ng/mL Total Protein (6.3-8.2) g/dL Albumin (3.5-5.0) g/dL Coronavirus (PCR) (Not Detectd) 10/12/21 10/12/21 Range/Units 12:40 15:44 WBC (3.8-10.6) k/uL RBC (3.80-5.40) m/uL Hgb (11.4-16.0) gm/dL Hct (34.0-46.0) % MCV (80.0-100.0) fL MCH (25.0-35.0) pg MCHC (31.0-37.0) g/dL RDW (11.5-15.5) % Plt Count (150-450) k/uL MPV Neutrophils % % Lymphocytes % % Monocytes % % Eosinophils % % Basophils % % Neutrophils # (1.3-7.7) k/uL Lymphocytes # (1.0-4.8) k/uL Monocytes # (0-1.0) k/uL Eosinophils # (0-0.7) k/uL Basophils # (0-0.2) k/uL PT (9.0-12.0) sec INR (<1.2) APTT (22.0-30.0) sec D-Dimer (<0.60) mg/L FEU Sample Site Left Radial ABG pH 7.38 (7.35-7.45) ABG pCO2 51 H (35-45) mmHg ABG pO2 84 (83-108) mmHg ABG HCO3 30 H (21-25) mmol/L ABG Total CO2 31 H (19-24) mmol/L ABG O2 Saturation 96.6 (94-97) % ABG Base Excess 4.7 mmol/L ABG Hematocrit 46 (34.0-46.0) % Justin Test Yes Hemoglobin 15.1 (11.4-16.0) gm/dL FiO2 37 % Sodium (137-145) mmol/L Potassium (3.5-5.1) mmol/L Chloride (98-107) mmol/L Carbon Dioxide (22-30) mmol/L Anion Gap mmol/L BUN (7-17) mg/dL Creatinine (0.52-1.04) mg/dL Est GFR (CKD-EPI)AfAm (>60 ml/min/1.73 sqM) Est GFR (CKD-EPI)NonAf (>60 ml/min/1.73 sqM) Glucose (74-99) mg/dL Plasma Lactic Acid Keegan (0.7-2.0) mmol/L Calcium (8.4-10.2) mg/dL Total Bilirubin (0.2-1.3) mg/dL AST (14-36) U/L ALT (4-34) U/L Alkaline Phosphatase (38-126) U/L Troponin I (0.000-0.034) ng/mL Total Protein (6.3-8.2) g/dL Albumin (3.5-5.0) g/dL Coronavirus (PCR) Detected A (Not Detectd) - Radiology Data Radiology results: report reviewed, image reviewed Disposition Clinical Impression: Hypoxemia Disposition: ADMITTED IP TO THIS HOSP
[2021-10-12 12:17] LABS: Basophils # (A) 0.1 k/uL (0-0.2); Basophils % (A) 1 %; Eosinophils # (A) 0.1 k/uL (0-0.7); Eosinophils % (A) 1 %; HCT 45.2 % (34.0-46.0); HGB 14.3 gm/dL (11.4-16.0); Lymphocytes # (A) 1.3 k/uL (1.0-4.8); Lymphocytes % (A) 17 %; MCH 31.6 pg (25.0-35.0); MCHC 31.7 g/dL (31.0-37.0); MCV 99.6 fL (80.0-100.0); Mean Platelet Volume 7.6; Monocytes # (A) 0.5 k/uL (0-1.0); Monocytes % (A) 6 %; Neutrophils # (A) 5.5 k/uL (1.3-7.7); Neutrophils % (A) 73 %; Platelet Count 244 k/uL (150-450); RBC 4.54 m/uL (3.80-5.40); RDW 13.5 % (11.5-15.5); WBC 7.6 k/uL (3.8-10.6)
[2021-10-12 12:30] LABS: Albumin 3.3 g/dL (3.5-5.0); Calcium 8.4 mg/dL (8.4-10.2); Potassium 5.2 mmol/L (3.5-5.1); Total Protein 5.9 g/dL (6.3-8.2)
[2021-10-12 12:31] LABS: Partial Thromboplastin Time 26.7 sec (22.0-30.0); Prothrombin Time 10.8 sec (9.0-12.0); Total Bilirubin 0.6 mg/dL (0.2-1.3)
--- NOTE | 2021-10-12 14:12 | XR ---
EXAMINATION TYPE: XR chest 2V DATE OF EXAM: 10/12/2021 1:23 PM COMPARISON: Chest radiographs from 11/22/2020. TECHNIQUE: XR chest 2V Frontal and lateral views of the chest. CLINICAL INDICATION:Female, 86 years old with history of difficulty breathing; FINDINGS: Lungs/Pleura: There is no evidence of pleural effusion, focal consolidation, or pneumothorax. Chroni c senescent parenchymal changes. Pulmonary vascularity: Unremarkable. Heart/mediastinum: Cardiomediastinal silhouette is unremarkable. Atherosclerotic calcifications are seen in the aorta. Musculoskeletal: No acute osseous pathology. IMPRESSION: No acute cardiopulmonary disease/process.
[2021-10-12 15:50] LABS: ABG Base Excess 4.7 mmol/L; ABG HCO3 30 mmol/L (21-25); ABG Hematocrit 46 % (34.0-46.0); ABG Oxygen Saturation 96.6 % (94-97); ABG PCO2 51 mmHg (35-45); ABG PH 7.38 (7.35-7.45); ABG PO2 84 mmHg (83-108); ABG TCO2 31 mmol/L (19-24); Allen Test Performed? Yes
[2021-10-12] MEDS ORDERED: HYDROcodone/APAP 5-325MG 1 EACH TAB PO PRN (16:40)
[2021-10-12] MEDS ORDERED: NALOXONE 0.4 MG/ML 1 ML VIAL IV PRN (16:40)
[2021-10-12] MEDS ORDERED: ACETAMINOPHEN TAB 325 MG TAB PO PRN (16:40)
[2021-10-12] MEDS ORDERED: ONDANSETRON 4 MG/2 ML VIAL IVP PRN (16:40)
[2021-10-12] MEDS ORDERED: ALPRAZolam 0.5 MG TAB PO PRN (17:42)
--- NOTE | 2021-10-12 17:51 | P.HPIM ---
History of Present Illness H&P Date: 10/12/21 Patient is an 86-year-old female with hypertension, prior tobacco abuse, hypothyroidism, and dyslipidemia who presented to the hospital from her assisted living secondary to hypoxemia. In the ER she underwent an extensive evaluation. On arrival she was 91% on room air but did decrease to 85 on room air. Initial labs demonstrated potassium 5.2, BUN 31, sodium 135. COVID-19 was positive. She underwent an ABG showed a pH of 7.38/pCO2 51/PaO2 84 on 37% FiO2. Chest x- ray demonstrated no acute process. EKG demonstrated normal sinus rhythm at a rate of [address]-T wave changes. Per ED nursing family was at bedside but has left already. Patient has dementia with intermittent confusion at baseline. Patient seen and examined at bedside. She states that she is feeling very anxious. She is very nervous. She asked me if I'm a doctor multiple times. She initially is unsure why she is here. My repeat oriented her to having cold that she states yes and afterwards they wanted cage me up immediately. She is upset that she was unable to get her peak him today at breakfast at [facility]. She does say she has shortness of breath sometimes she initially denied that she has a cough, however during physical exam she is coughing multiple times. She does report a sore throat. She states she has been eating and drinking her normal amounts. She denies any nausea, vomiting, or diarrhea. Patient is unable to participate and past medical/surgical/family history gathering secondary to her dementia. Thorough review of medical records was conducted including her hospitalization in November 2020. All information was gathered from this data. Pertinent positives and negatives as discussed in HPI, a complete review of systems was performed and all other systems are negative. Vital signs reviewed General: nontoxic, no distress, appears at stated age Derm: warm, dry Head: atraumatic, normocephalic, symmetric Eyes: EOMI, no lid lag, anicteric sclera, pupils equal round reactive to light ENT: Nose and ears atraumatic, no thrush, + pharyngeal erythema Neck: No thyromegaly, no cervical lymphadenopathy, trachea midline, supple Mouth: no lip lesion, mucus membranes moist Cardiovascular: S1S2 reg, no murmur, positive posterior tibial pulse bilateral, no edema, capillary refill less than 2 seconds Lungs: Course bs bilateral, no rhonchi, no rales, no wheeze, no accessory muscle use Abdominal: soft, nontender to palpation, no guarding, no appreciable organomegaly, normal bowel sounds Ext: no gross muscle atrophy, muscle strength 5 out of 5 in all 4 extremities, no contractures Neuro: CN II-XII grossly intact, light touch intact all 4 extremities, finger to nose within normal limits, Psych: Alert, oriented to self, intermittently oriented to situation, appears anxious Assessment/Plan: COVID-19 Acute hypoxic respiratory failure - mucinex - decadron - IV fluids - tylenol - Lovenox - consult pulmonary for consideration for remdesivir may not have much benefit in this patient - follow inflammatory markers Dementia Anxiety - safe and supportive environment - frequent reorientation - home xanax - celexa Hyperkalemia -Hold Aldactone, losartan -IV fluids -Repeat potassium level in a.m. Hypertension, Controlled -Resume home metoprolol -Follow blood pressures as Aldactone and losartan are on hold Hypothyroidism -Levothyroxine Dyslipidemia -Statin The patient is admitted with an anticipated greater than 2 midnight stay for evaluation of COVID with hypoxia. Surrogate decision-maker: She reports that he can call either her son or her daughter to help make medical decisions DVT prophylaxis: Lovenox Discussed with: Patient, ED physician, no family available during my exam Anticipated discharge date: in 2-[address]: return to [facility] A total of 45 minutes was spent on the care of this complex patient more than 50% of the time was spent in counseling and care coordination. Past Medical History Past Medical History: Dementia, Hyperlipidemia, Hypertension, Syncope, Thyroid Disorder History of Any Multi-Drug Resistant Organisms: None Reported Past Surgical History: Cholecystectomy Past Anesthesia/Blood Transfusion Reactions: No Reported Reaction Past Psychological History: No Psychological Hx Reported Smoking Status: Former smoker Past Alcohol Use History: None Reported Past Drug Use History: None Reported - Past Family History Mother Family Medical History: Unable to Obtain (unable to obtain family hx due to patients dementia) Medications and Allergies Home Medications Medication Instructions Recorded Confirmed Type Ascorbic Acid [Vitamin C] 500 mg PO DAILY@0800 11/22/20 10/12/21 History Aspirin EC [Ecotrin Low Dose] 81 mg PO DAILY@0811/22/20 10/12/21 History Atorvastatin [Lipitor] 40 mg PO HS@199911/22/20 10/12/21 History Cholecalciferol [Vitamin D3 (25 25 mcg PO DAILY@0811/22/20 10/12/21 History Mcg = 1000 Iu)] Levothyroxine Sodium 88 mcg PO MOTUWETHFR@199911/22/20 10/12/21 History Levothyroxine Sodium 132 mcg PO SUSA@199911/22/20 10/12/21 History Losartan Potassium 100 mg PO DAILY@0811/22/20 10/12/21 History Metoprolol Succinate [Toprol XL] 25 mg PO DAILY@0811/22/20 10/12/21 History Multivitamins, Thera [Multivitamin 1 tab PO DAILY@79911/22/20 10/12/21 History (formulary)] Spironolactone [Aldactone] 50 mg PO DAILY@0811/22/20 10/12/21 History ALPRAZolam [Xanax] 0.5 mg PO HS@199910/12/21 10/12/21 History Acetaminophen Tab [Tylenol Tab] 1,000 mg PO Q6HR PRN 10/12/21 10/12/21 History Ammonium Lactate Cream [Lac-Hydrin 1 applic TOPICAL BID PRN 10/12/21 10/12/21 History 12% Cream] Citalopram Hydrobromide [CeleXA] 20 mg PO DAILY@79910/12/21 10/12/21 History Cyanocobalamin/Cobamamide [Vitamin 1 tab SL DAILY@79910/12/21 10/12/21 History B-12 5,000 Mcg Tab Sl] Loperamide [Imodium] 2 mg PO QID PRN 10/12/21 10/12/21 History Melatonin 6 mg PO HS@199910/12/21 10/12/21 History Allergies Allergy/AdvReac Type Severity Reaction Status Date / Time No Known Allergies Allergy Verified 10/12/21 14:12 Physical Exam Osteopathic Statement: *. No significant issues noted on an osteopathic structural exam other than those noted in the History and Physical/Consult. Vitals: Vital Signs Temp Pulse Resp BP Pulse Ox 10/12/21 16:27 70 20 117/55 89 L 10/12/21 13:35 64 20 113/56 85 L 10/12/21 12:40 69 18 114/61 92 L 10/12/21 12:36 80 10/12/21 12:24 77 10/12/21 11:55 20 10/12/21 11:40 98.4 F 65 18 117/50 91 L Intake and Output 10/12/21 10/12/21 10/12/21 06:59 14:59 22:59 Other: Weight 84.958 kg Results CBC & Chem 7: 10/12/21 12:05 10/12/21 12:05 Labs: Abnormal Lab Results - Last 24 Hours (Table) 10/12/21 10/12/21 10/12/21 Range/Units 12:05 12:40 15:44 ABG pCO2 51 H (35-45) mmHg ABG HCO3 30 H (21-25) mmol/L ABG Total CO2 31 H (19-24) mmol/L Sodium 135 L (137-145) mmol/L Potassium 5.2 H (3.5-5.1) mmol/L Chloride 97 L (98-107) mmol/L BUN 31 H (7-17) mg/dL Glucose 155 H (74-99) mg/dL Total Protein 5.9 L (6.3-8.2) g/dL Albumin 3.3 L (3.5-5.0) g/dL Coronavirus (PCR) Detected A (Not Detectd)
[2021-10-12] MEDS: ALPRAZolam 0.5 MG TAB PO SCH (20:23)
[2021-10-12] MEDS: ATORVASTATIN 40 MG TAB PO SCH (20:58)
[2021-10-12] MEDS: LEVOTHYROXINE 88 MCG TAB PO SCH (20:58)
[2021-10-13] MEDS: MELATONIN 3 MG TABLET PO SCH ×2 (00:50→20:29)
[2021-10-13] MEDS: SODIUM CHLORIDE 0.9% 1,000 ML IV SCH ×3 (01:18→20:29)
[2021-10-13] MEDS ORDERED: SPIRONOLACTONE 25 MG TAB PO SCH (08:00)
[2021-10-13] MEDS ORDERED: LOSARTAN 50 MG TAB PO SCH (08:00)
[2021-10-13] MEDS: dexAMETHasone 2 MG TAB PO SCH (08:46)
[2021-10-13] MEDS: CYANOCOBALAMIN 500 MCG TAB PO SCH (08:46)
[2021-10-13] MEDS: METOPROLOL SUCCINATE (ER) 25 MG TAB.ER.24H PO SCH (08:46)
[2021-10-13] MEDS: MULTIVITAMINS, THERA 1 EACH TAB PO SCH (08:46)
[2021-10-13] MEDS: ASCORBIC ACID 500 MG TAB PO SCH (08:46)
[2021-10-13] MEDS: CITALOPRAM HYDROBROMIDE 20 MG TAB PO SCH (08:46)
[2021-10-13] MEDS: CHOLECALCIFEROL 25 MCG (1000 IU) TABLET PO SCH (08:46)
[2021-10-13] MEDS: ENOXAPARIN 40 MG/0.4 ML SYRINGE SQ SCH (08:47)
[2021-10-13 09:33] LABS: HCT 44.7 % (34.0-46.0); HGB 14.4 gm/dL (11.4-16.0); Hypochromasia Slight; MCH 32.3 pg (25.0-35.0); MCHC 32.2 g/dL (31.0-37.0); MCV 100.2 fL (80.0-100.0); Mean Platelet Volume 7.9; Platelet Count 298 k/uL (150-450); RBC 4.46 m/uL (3.80-5.40); RDW 12.9 % (11.5-15.5); WBC 10.6 k/uL (3.8-10.6)
[2021-10-13 09:51] LABS: Albumin 3.3 g/dL (3.5-5.0); C Reactive Protein 3.3 mg/dL (<1.0); Calcium 8.8 mg/dL (8.4-10.2); Potassium 4.9 mmol/L (3.5-5.1); Total Bilirubin 0.5 mg/dL (0.2-1.3); Total Protein 5.9 g/dL (6.3-8.2)
--- NOTE | 2021-10-13 10:09 | P.PN ---
Subjective Progress Note Date: 10/13/21 Patient is doing well. Does report shortness of breath but improving. She reports cough with deep breathing. Gen: awake, alert HEENT: normocephalic, atraumatic, good hearing acuity, moist mucous membranes Resp: good air exchange, breathing comfortably with no accessory muscle use CVS: good distal perfusion x 4, GI: soft, NTTP, ND : no SPT, no CVAT, lees catheter not present MSK: no pitting edema, no clubbing Neuro: non-focal, moving all extremities Psych: cooperative, euthymic mood Assessment/plan: COVID-19 Acute hypoxic respiratory failure - mucinex - decadron - IV fluids - tylenol - Lovenox - consult pulmonary for consideration for remdesivir may not have much benefit in this patient - follow inflammatory markers Dementia Anxiety - safe and supportive environment - frequent reorientation - home xanax - celexa Hyperkalemia -Hold Aldactone, losartan -IV fluids -Repeat potassium level in a.m. Hypertension, Controlled -Resume home metoprolol -Follow blood pressures as Aldactone and losartan are on hold Hypothyroidism -Levothyroxine Dyslipidemia -Statin Surrogate decision-maker: She reports that he can call either her son or her daughter to help make medical decisions DVT prophylaxis: Lovenox Anticipated discharge date: in 2-[address]: return to [facility] Objective - Vital Signs Vital signs: Vital Signs Temp 97.1 F L 10/13/21 09:03 Pulse 65 10/13/21 09:03 Resp 20 10/13/21 09:03 BP 96/51 10/13/21 09:03 Pulse Ox 93 L 10/13/21 09:03 FiO2 Intake & Output 10/12/21 10/13/21 10/13/21 18:59 06:59 18:59 Intake Total 118 Balance 118 Weight 84.958 kg 84.958 kg Intake: Oral 118 Other: Voiding Method Toilet Toilet Bedside Commode Bedside Commode Diaper Diaper # Voids 1 1 # Bowel Movements 1 - Labs CBC & Chem 7: 10/13/21 08:54 10/13/21 08:54 Labs: Abnormal Lab Results - Last 24 Hours (Table) 10/12/21 10/12/21 10/12/21 Range/Units 12:05 12:40 15:44 MCV (80.0-100.0) fL ABG pCO2 51 H (35-45) mmHg ABG HCO3 30 H (21-25) mmol/L ABG Total CO2 31 H (19-24) mmol/L Sodium 135 L (137-145) mmol/L Potassium 5.2 H (3.5-5.1) mmol/L Chloride 97 L (98-107) mmol/L BUN 31 H (7-17) mg/dL Glucose 155 H (74-99) mg/dL C-Reactive Protein (<1.0) mg/dL Total Protein 5.9 L (6.3-8.2) g/dL Albumin 3.3 L (3.5-5.0) g/dL Coronavirus (PCR) Detected A (Not Detectd) 10/13/21 10/13/21 Range/Units 08:54 08:54 MCV 100.2 H (80.0-100.0) fL ABG pCO2 (35-45) mmHg ABG HCO3 (21-25) mmol/L ABG Total CO2 (19-24) mmol/L Sodium 136 L (137-145) mmol/L Potassium (3.5-5.1) mmol/L Chloride 97 L (98-107) mmol/L BUN 39 H (7-17) mg/dL Glucose 151 H (74-99) mg/dL C-Reactive Protein 3.3 H (<1.0) mg/dL Total Protein 5.9 L (6.3-8.2) g/dL Albumin 3.3 L (3.5-5.0) g/dL Coronavirus (PCR) (Not Detectd)
[2021-10-13] MEDS: ALPRAZolam 0.5 MG TAB PO SCH (20:29)
[2021-10-13] MEDS: ATORVASTATIN 40 MG TAB PO SCH (20:29)
[2021-10-13] MEDS: LEVOTHYROXINE 88 MCG TAB PO SCH (20:29)
--- NOTE | 2021-10-13 22:42 | P.CNPUL ---
History of Present Illness Consult date: 10/13/21 Requesting physician: Iva Mccabe Reason for consult: dyspnea, abnormal CXR/CT Chief complaint: Shortness of breath History of present illness: This 86-year-old female patient comes from an adult foster care setting with complaints of 2 day history of shortness of breath cough and congestion. She was found to be CoVID positive. She is seen today in consultation on the selective care unit. She is awake and alert. Confused at times. Loose nonproductive cough. She is currently maintaining good O2 saturations in the 90s on 4 L/m per nasal cannula. Afebrile. Hemodynamically stable. White count 10.6. Hemoglobin 14.4. Arterial blood gases on 37% FiO2 revealed a pO2 of 84, pCO2 51, pH 7.3. Sedimentation 6. Potassium 4.9. Bicarb 26. BUN 39. Creatinine 0.90. CoVID by PCR positive. She's been initiated on Lovenox, Decadron, vitamin supplements. Chest x-ray revealed no acute pulmonary process per Review of Systems ROS unobtainable: due to mental status Past Medical History Past Medical History: Hypertension Additional Past Medical History / Comment(s): poor historian History of Any Multi-Drug Resistant Organisms: None Reported Past Surgical History: Cholecystectomy Past Anesthesia/Blood Transfusion Reactions: No Reported Reaction Past Psychological History: No Psychological Hx Reported Smoking Status: Former smoker Past Alcohol Use History: None Reported Past Drug Use History: None Reported - Past Family History Mother Family Medical History: Unable to Obtain Medications and Allergies Home Medications Medication Instructions Recorded Confirmed Type Ascorbic Acid [Vitamin C] 500 mg PO DAILY@0800 11/22/20 10/12/21 History Aspirin EC [Ecotrin Low Dose] 81 mg PO DAILY@0800 11/22/20 10/12/21 History Atorvastatin [Lipitor] 40 mg PO HS@199911/22/20 10/12/21 History Cholecalciferol [Vitamin D3 (25 25 mcg PO DAILY@0800 11/22/20 10/12/21 History Mcg = 1000 Iu)] Levothyroxine Sodium 88 mcg PO MOTUWETHFR@199911/22/20 10/12/21 History Levothyroxine Sodium 132 mcg PO SUSA@199911/22/20 10/12/21 History Losartan Potassium 100 mg PO DAILY@0800 11/22/20 10/12/21 History Metoprolol Succinate [Toprol XL] 25 mg PO DAILY@0811/22/20 10/12/21 History Multivitamins, Thera [Multivitamin 1 tab PO DAILY@79911/22/20 10/12/21 History (formulary)] Spironolactone [Aldactone] 50 mg PO DAILY@0811/22/20 10/12/21 History ALPRAZolam [Xanax] 0.5 mg PO HS@199910/12/21 10/12/21 History Acetaminophen Tab [Tylenol Tab] 1,000 mg PO Q6HR PRN 10/12/21 10/12/21 History Ammonium Lactate Cream [Lac-Hydrin 1 applic TOPICAL BID PRN 10/12/21 10/12/21 History 12% Cream] Citalopram Hydrobromide [CeleXA] 20 mg PO DAILY@79910/12/21 10/12/21 History Cyanocobalamin/Cobamamide [Vitamin 1 tab SL DAILY@79910/12/21 10/12/21 History B-12 5,000 Mcg Tab Sl] Loperamide [Imodium] 2 mg PO QID PRN 10/12/21 10/12/21 History Melatonin 6 mg PO HS@199910/12/21 10/12/21 History Allergies Allergy/AdvReac Type Severity Reaction Status Date / Time No Known Allergies Allergy Verified 10/12/21 14:12 Physical Exam Vitals: Vital Signs Temp Pulse Resp BP Pulse Ox 10/13/21 11:39 97.4 F L 54 L 16 105/54 93 L 10/13/21 09:03 97.1 F L 65 20 96/51 93 L 10/13/21 04:15 97.8 F 61 20 113/68 95 10/13/21 00:30 94 L 10/13/21 00:27 97.9 F 56 L 18 102/54 91 L Intake and Output 10/13/21 10/13/21 10/13/21 06:59 14:59 22:59 Intake Total 118 Balance 118 Intake: Oral 118 Other: Voiding Method Toilet Toilet Bedside Commode Bedside Commode Diaper Diaper # Voids 1 1 # Bowel Movements 1 Weight 84.958 kg GENERAL EXAM: Alert, confused 86-year-old female patient, on 4 L nasal cannula, comfortable in no apparent distress. HEAD: Normocephalic. EYES: Normal reaction of pupils, equal size. NOSE: Clear with pink turbinates. THROAT: No erythema or exudates. NECK: No masses, no JVD. CHEST: No chest wall deformity. LUNGS: Equal air entry with no crackles in the posterior base. CVS: S1 and S2 normal with no audible murmur, regular rhythm. ABDOMEN: No hepatosplenomegaly, normal bowel sounds, no guarding or rigidity. SPINE: No scoliosis or deformity SKIN: No rashes CENTRAL NERVOUS SYSTEM: No focal deficits, tone is normal in all 4 extremities. EXTREMITIES: There is no peripheral edema. No clubbing, no cyanosis. Peripheral pulses are intact. Results - Laboratory Findings CBC and BMP: 10/13/21 08:54 10/13/21 08:54 ABG ABG pH 7.38 (7.35-7.45) 10/12/21 15:44 ABG pCO2 51 mmHg (35-45) H 10/12/21 15:44 ABG pO2 84 mmHg (83-108) 10/12/21 15:44 ABG O2 Saturation 96.6 % (94-97) 10/12/21 15:44 PT/INR, D-dimer PT 10.8 sec (9.0-12.0) 10/12/21 12:05 INR 1.0 (<1.2) 10/12/21 12:05 D-Dimer 0.45 mg/L FEU (<0.60) 10/12/21 12:05 Abnormal lab findings: Abnormal Labs 10/12/21 10/12/21 10/12/21 12:05 12:40 15:44 MCV ABG pCO2 51 H ABG HCO3 30 H ABG Total CO2 31 H Sodium 135 L Potassium 5.2 H Chloride 97 L BUN 31 H Glucose 155 H C-Reactive Protein Total Protein 5.9 L Albumin 3.3 L Coronavirus (PCR) Detected A 10/13/21 10/13/21 08:54 08:54 MCV 100.2 H ABG pCO2 ABG HCO3 ABG Total CO2 Sodium 136 L Potassium Chloride 97 L BUN 39 H Glucose 151 H C-Reactive Protein 3.3 H Total Protein 5.9 L Albumin 3.3 L Coronavirus (PCR) Assessment and Plan Assessment: Acute hypoxemic respiratory failure secondary to COVID-19. Chest x-ray reveals no acute pulmonary process. History of dementia History of anxiety Poor historian Hyperkalemia History of hypertension Hypothyroidism History of hyperlipidemia Plan: The patient was seen and evaluated Chest x-ray, labs and medications reviewed Unable to determine the exact time of symptoms Continue Decadron, Lovenox, vitamin supplement Titrate down the FiO2 as tolerated We'll continue to follow make further recommendations based on her clinical status I have personally seen and examined the patient, performed the documentation and the assessment and plan as written. Number of minutes spent on the visit: 20.
[2021-10-14] MEDS: SODIUM CHLORIDE 0.9% 1,000 ML IV SCH (06:31)
[2021-10-14] MEDS: ENOXAPARIN 40 MG/0.4 ML SYRINGE SQ SCH (10:04)
[2021-10-14] MEDS: CYANOCOBALAMIN 500 MCG TAB PO SCH (10:04)
[2021-10-14] MEDS: CHOLECALCIFEROL 25 MCG (1000 IU) TABLET PO SCH (10:05)
[2021-10-14] MEDS: dexAMETHasone 2 MG TAB PO SCH (10:05)
[2021-10-14] MEDS: ASCORBIC ACID 500 MG TAB PO SCH (10:05)
[2021-10-14] MEDS: MULTIVITAMINS, THERA 1 EACH TAB PO SCH (10:05)
[2021-10-14] MEDS: METOPROLOL SUCCINATE (ER) 25 MG TAB.ER.24H PO SCH (10:05)
[2021-10-14] MEDS: CITALOPRAM HYDROBROMIDE 20 MG TAB PO SCH (10:05)
--- NOTE | 2021-10-14 11:54 | P.PN ---
Subjective Progress Note Date: 10/14/21 Patient is doing well. Does report shortness of breath but improving. She reports cough with deep breathing. Gen: awake, alert HEENT: normocephalic, atraumatic, good hearing acuity, moist mucous membranes Resp: good air exchange, breathing comfortably with no accessory muscle use CVS: good distal perfusion x 4, GI: soft, NTTP, ND : no SPT, no CVAT, lees catheter not present MSK: no pitting edema, no clubbing Neuro: non-focal, moving all extremities Psych: cooperative, euthymic mood Assessment/plan: COVID-19 Acute hypoxic respiratory failure - mucinex - decadron - IV fluids - tylenol - Lovenox - consult pulmonary medicine - follow inflammatory markers - PT consult - encourage IS Dementia Anxiety - safe and supportive environment - frequent reorientation - home xanax - celexa Hyperkalemia -Hold Aldactone, losartan -IV fluids -Repeat potassium level in a.m. Hypertension, Controlled -Resume home metoprolol -Follow blood pressures as Aldactone and losartan are on hold Hypothyroidism -Levothyroxine Dyslipidemia -Statin Surrogate decision-maker: She reports that he can call either her son or her daughter to help make medical decisions DVT prophylaxis: Lovenox Anticipated discharge date: in 2-[address]: return to [facility] Objective - Vital Signs Vital signs: Vital Signs Temp 98 F 10/14/21 03:35 Pulse 74 10/14/21 10:43 Resp 18 10/14/21 10:43 BP 120/65 10/14/21 10:43 Pulse Ox 93 L 10/14/21 10:43 FiO2 Intake & Output 10/13/21 10/14/21 10/14/21 18:59 06:59 18:59 Intake Total 118 Output Total 600 Balance 118 -600 Intake: Oral 118 Output: Urine 600 Other: Voiding Method Toilet Bedside Commode Toilet Bedside Commode Diaper # Voids 1 1 # Bowel Movements 1 - Labs CBC & Chem 7: 10/13/21 08:54 10/13/21 08:54
--- NOTE | 2021-10-14 13:58 | P.PN ---
Subjective Progress Note Date: 10/14/21 This 86-year-old female patient comes from an adult foster care setting with complaints of 2 day history of shortness of breath cough and congestion. She was found to be CoVID positive. She is seen today in consultation on the selective care unit. She is awake and alert. Confused at times. Loose nonp roductive cough. She is currently maintaining good O2 saturations in the 90s on 4 L/m per nasal cannula. Afebrile. Hemodynamically stable. White count 10.6. Hemoglobin 14.4. Arterial blood gases on 37% FiO2 revealed a pO2 of 84, pCO2 51, pH 7.3. Sedimentation 6. Potassium 4.9. Bicarb 26. BUN 39. Creatinine 0.90. CoVID by PCR positive. She's been initiated on Lovenox, Decadron, vitamin supplements. Chest x-ray revealed no acute pulmonary process. The patient is seen today 10/14/2021 in follow-up on the selective care unit. She is currently resting comfortably in bed. Awake and alert in no acute distress. Maintaining O2 saturations in the 90s on 3 L/m per nasal cannula. He remains on Decadron, Lovenox, vitamin supplements. Normal saline at 75 mls per hour. Objective - Vital Signs Vital signs: Vital Signs Temp 98 F 10/14/21 03:35 Pulse 64 10/14/21 12:43 Resp 19 10/14/21 12:43 BP 146/67 10/14/21 12:43 Pulse Ox 94 L 10/14/21 12:43 FiO2 Intake & Output 10/13/21 10/14/21 10/14/21 18:59 06:59 18:59 Intake Total 118 Output Total 600 675 Balance 118 -600 -675 Intake: Oral 118 Output: Urine 600 675 Other: Voiding Method Toilet Bedside Commode Toilet Bedside Commode Diaper # Voids 1 1 2 # Bowel Movements 1 - Exam GENERAL EXAM: Alert, confused 86-year-old female patient, on 3 L nasal cannula, comfortable in no apparent distress. HEAD: Normocephalic. EYES: Normal reaction of pupils, equal size. NOSE: Clear with pink turbinates. THROAT: No erythema or exudates. NECK: No masses, no JVD. CHEST: No chest wall deformity. LUNGS: Equal air entry with no crackles in the posterior base. CVS: S1 and S2 normal with no audible murmur, regular rhythm. ABDOMEN: No hepatosplenomegaly, normal bowel sounds, no guarding or rigidity. SPINE: No scoliosis or deformity SKIN: No rashes CENTRAL NERVOUS SYSTEM: No focal deficits, tone is normal in all 4 extremities. EXTREMITIES: There is no peripheral edema. No clubbing, no cyanosis. Peripheral pulses are intact. - Labs CBC & Chem 7: 10/13/21 08:54 10/13/21 08:54 Assessment and Plan Assessment: Acute hypoxemic respiratory failure secondary to COVID-19. Chest x-ray reveals no acute pulmonary process. History of dementia History of anxiety Poor historian Hyperkalemia History of hypertension Hypothyroidism History of hyperlipidemia Plan: The patient was seen and evaluated Continue Decadron, Lovenox, vitamin supplement Titrate down the FiO2 as tolerated Possible transfer back to [facility] in a.m. We'll continue to follow I have personally seen and examined the patient, performed the documentation and the assessment and plan as written. Number of minutes spent on the visit: 10.
[2021-10-14] MEDS: MELATONIN 3 MG TABLET PO SCH (20:10)
[2021-10-14] MEDS: ALPRAZolam 0.5 MG TAB PO SCH (20:11)
[2021-10-14] MEDS: LEVOTHYROXINE 88 MCG TAB PO SCH (20:11)
[2021-10-14] MEDS: ATORVASTATIN 40 MG TAB PO SCH (20:11)
[2021-10-15] MEDS: SODIUM CHLORIDE 0.9% 1,000 ML IV SCH ×2 (01:57→14:26)
[2021-10-15 05:50] VITALS: TEMP 97.6
[2021-10-15 07:20] LABS: Basophils % (A) 0 %; Eosinophils % (A) 0 %; HCT 48.1 % (34.0-46.0); HGB 15.1 gm/dL (11.4-16.0); Hypochromasia Moderate; Lymphocytes # (A) 1.7 k/uL (1.0-4.8); Lymphocytes % (A) 12 %; MCH 31.8 pg (25.0-35.0); MCHC 31.3 g/dL (31.0-37.0); MCV 101.5 fL (80.0-100.0); Macrocytosis Slight; Mean Platelet Volume 7.9; Monocytes # (A) 0.7 k/uL (0-1.0); Monocytes % (A) 5 %; Neutrophils # (A) 11.4 k/uL (1.3-7.7); Neutrophils % (A) 81 %; Platelet Count 350 k/uL (150-450); RBC 4.74 m/uL (3.80-5.40); RDW 13.3 % (11.5-15.5); WBC 14.1 k/uL (3.8-10.6)
[2021-10-15 07:45] LABS: Albumin 3.3 g/dL (3.5-5.0); Bilirubin, Delta 0.1 mg/dL (0.0-0.2); Bilirubin,Unconjugated 0.3 mg/dL (0.0-1.1); Calcium 8.7 mg/dL (8.4-10.2); Magnesium 2.2 mg/dL (1.6-2.3); Potassium 4.7 mmol/L (3.5-5.1); Total Bilirubin 0.4 mg/dL (0.2-1.3); Total Protein 5.6 g/dL (6.3-8.2)
[2021-10-15] MEDS: MULTIVITAMINS, THERA 1 EACH TAB PO SCH (09:19)
[2021-10-15] MEDS: METOPROLOL SUCCINATE (ER) 25 MG TAB.ER.24H PO SCH (09:20)
[2021-10-15] MEDS: CHOLECALCIFEROL 25 MCG (1000 IU) TABLET PO SCH (09:20)
[2021-10-15] MEDS: ASCORBIC ACID 500 MG TAB PO SCH (09:20)
[2021-10-15] MEDS: ENOXAPARIN 40 MG/0.4 ML SYRINGE SQ SCH (09:20)
[2021-10-15] MEDS: CITALOPRAM HYDROBROMIDE 20 MG TAB PO SCH (09:20)
[2021-10-15] MEDS: CYANOCOBALAMIN 500 MCG TAB PO SCH (09:20)
[2021-10-15] MEDS: dexAMETHasone 2 MG TAB PO SCH (09:20)
[2021-10-15 09:39] LABS: C Reactive Protein 0.9 mg/dL (<1.0)
[2021-10-15 10:34] VITALS: RESP 17
--- NOTE | 2021-10-15 12:32 | P.DS ---
Providers Date of admission: 10/12/21 16:40 Expected date of discharge: 10/15/21 Attending physician: Iva Mccabe DO Consults: 10/12/21 17:33 Consult Physician Routine Consulting Provider: Landry Aragon Consult Reason/Comments: COVID, Remdesivir Do you want consulting provider notified?: Yes Primary care physician: Usha Novak MD Hospital Course: COVID-19 Acute hypoxic respiratory failure Dementia Anxiety Hyperkalemia Hypertension, Controlled Hypothyroidism Dyslipidemia Patient is an 86-year-old female with hypertension, prior tobacco abuse, hypothyroidism, and dyslipidemia who presented to the hospital from her assisted living secondary to hypoxemia. In the ER she underwent an extensive evaluation. On arrival she was 91% on room air but did decrease to 85 on room air. Initial labs demonstrated potassium 5.2, BUN 31, sodium 135. COVID-19 was positive. She underwent an ABG showed a pH of 7.38/pCO2 51/PaO2 84 on 37% FiO2. Chest x- ray demonstrated no acute process. EKG demonstrated normal sinus rhythm at a rate of [address]-T wave changes. Patient was started on dexamethasone and seen by pulmonary medicine. Her symptoms started to improve, but on discharge still required a minimal amount of oxygen. She is recommended to continue home oxygen with a total 10 day course of dexamethasone, PT/OT in [facility]. Inflammatory markers improving. I spent 38 minutes coordinating this discharge, discharge date 10/15. Gen: awake, alert HEENT: normocephalic, atraumatic, good hearing acuity, moist mucous membranes Resp: good air exchange, breathing comfortably with no accessory muscle use CVS: good distal perfusion x 4, GI: soft, NTTP, ND : no SPT, no CVAT, lees catheter not present MSK: no pitting edema, no clubbing Neuro: non-focal, moving all extremities Psych: cooperative, euthymic mood Patient Condition at Discharge: Good Plan - Discharge Summary Discharge Rx Participant: No New Discharge Prescriptions: New dexAMETHasone ORAL [Hexadrol] 6 mg PO DAILY #21 tab Continue Aspirin EC [Ecotrin Low Dose] 81 mg PO DAILY@0800 Ascorbic Acid [Vitamin C] 500 mg PO DAILY@0800 Atorvastatin [Lipitor] 40 mg PO HS@2000 Levothyroxine Sodium 88 mcg PO MOTUWETHFR@2000 Ammonium Lactate Cream [Lac-Hydrin 12% Cream] 1 applic TOPICAL BID PRN PRN Reason: DRY FEET ALPRAZolam [Xanax] 0.5 mg PO HS@1999 Multivitamins, Thera [Multivitamin (formulary)] 1 tab PO DAILY@0800 Metoprolol Succinate [Toprol XL] 25 mg PO DAILY@0800 Cholecalciferol [Vitamin D3 (25 Mcg = 1000 Iu)] 25 mcg PO DAILY@0800 Levothyroxine Sodium 132 mcg PO SUSA@1999 Loperamide [Imodium] 2 mg PO QID PRN PRN Reason: Diarrhea Acetaminophen Tab [Tylenol] 1,000 mg PO Q6HR PRN PRN Reason: Pain Or Fever > 100.5 Melatonin 6 mg PO HS@1999 Citalopram Hydrobromide [CeleXA] 20 mg PO DAILY@0800 Cyanocobalamin/Cobamamide [Vitamin B-12 5,000 Mcg Tab Sl] 1 tab SL DAILY@0800 Discontinued Spironolactone [Aldactone] 50 mg PO DAILY@0800 Losartan Potassium 100 mg PO DAILY@0800 Discharge Medication List Ascorbic Acid [Vitamin C] 500 mg PO DAILY@0800 11/22/20 [History] Aspirin EC [Ecotrin Low Dose] 81 mg PO DAILY@0800 11/22/20 [History] Atorvastatin [Lipitor] 40 mg PO HS@199911/22/20 [History] Cholecalciferol [Vitamin D3 (25 Mcg = 1000 Iu)] 25 mcg PO DAILY@0800 11/22/20 [History] Levothyroxine Sodium 88 mcg PO MOTUWETHFR@199911/22/20 [History] Levothyroxine Sodium 132 mcg PO SUSA@199911/22/20 [History] Metoprolol Succinate [Toprol XL] 25 mg PO DAILY@0800 11/22/20 [History] Multivitamins, Thera [Multivitamin (formulary)] 1 tab PO DAILY@0800 11/22/20 [History] ALPRAZolam [Xanax] 0.5 mg PO HS@199910/12/21 [History] Acetaminophen Tab [Tylenol] 1,000 mg PO Q6HR PRN 10/12/21 [History] Ammonium Lactate Cream [Lac-Hydrin 12% Cream] 1 applic TOPICAL BID PRN 10/12/21 [History] Citalopram Hydrobromide [CeleXA] 20 mg PO DAILY@79910/12/21 [History] Cyanocobalamin/Cobamamide [Vitamin B-12 5,000 Mcg Tab Sl] 1 tab SL DAILY@79910/12/21 [History] Loperamide [Imodium] 2 mg PO QID PRN 10/12/21 [History] Melatonin 6 mg PO HS@199910/12/21 [History] dexAMETHasone ORAL [Hexadrol] 6 mg PO DAILY #21 tab 10/15/21 [Rx] Follow up Appointment(s)/Referral(s): Usha Novak MD [Primary Care Provider] - 1-2 days Discharge Disposition: HOME WITH HOME HEALTH SERVICES
--- NOTE | 2021-10-15 12:33 | P.PN ---
Subjective Progress Note Date: 10/15/21 This 86-year-old female patient comes from an adult foster care setting with complaints of 2 day history of shortness of breath cough and congestion. She was found to be CoVID positive. She is seen today in consultation on the selective care unit. She is awake and alert. Confused at times. Loose nonp roductive cough. She is currently maintaining good O2 saturations in the 90s on 4 L/m per nasal cannula. Afebrile. Hemodynamically stable. White count 10.6. Hemoglobin 14.4. Arterial blood gases on 37% FiO2 revealed a pO2 of 84, pCO2 51, pH 7.3. Sedimentation 6. Potassium 4.9. Bicarb 26. BUN 39. Creatinine 0.90. CoVID by PCR positive. She's been initiated on Lovenox, Decadron, vitamin supplements. Chest x-ray revealed no acute pulmonary process. The patient is seen today 10/14/2021 in follow-up on the selective care unit. She is currently resting comfortably in bed. Awake and alert in no acute distress. Maintaining O2 saturations in the 90s on 3 L/m per nasal cannula. He remains on Decadron, Lovenox, vitamin supplements. Normal saline at 75 mls per hour. The patient is seen today 10/15/2021 in follow-up on the selective care unit. She is currently resting comfortably in bed. Maintaining O2 saturations in the 90s on 3 L/m per nasal cannula. She's been afebrile. Hemodynamically stable. White count 14.1. Hemoglobin 15.1. D-dimer 0.57. Sodium 139. Potassium 4.7. BUN 27. Creatinine 0.77. Glucose 102. AST 29. ALT 42. She is continued on Decadron, Lovenox, vitamin supplements. Objective - Vital Signs Vital signs: Vital Signs Temp 97.6 F 10/15/21 04:00 Pulse 71 10/15/21 09:20 Resp 17 10/15/21 09:20 BP 117/58 10/15/21 09:20 Pulse Ox 95 10/15/21 09:20 FiO2 Intake & Output 10/14/21 10/15/21 10/15/21 18:59 06:59 18:59 Intake Total 480 Output Total 675 250 Balance -675 -250 480 Intake: Oral 480 Output: Urine 675 250 Other: Voiding Method Toilet Toilet Bedside Commode # Voids 2 2 - Exam GENERAL EXAM: Alert, confused 86-year-old female patient, on 3 L nasal cannula, comfortable in no apparent distress. HEAD: Normocephalic. EYES: Normal reaction of pupils, equal size. NOSE: Clear with pink turbinates. THROAT: No erythema or exudates. NECK: No masses, no JVD. CHEST: No chest wall deformity. LUNGS: Equal air entry with no crackles in the posterior base. CVS: S1 and S2 normal with no audible murmur, regular rhythm. ABDOMEN: No hepatosplenomegaly, normal bowel sounds, no guarding or rigidity. SPINE: No scoliosis or deformity SKIN: No rashes CENTRAL NERVOUS SYSTEM: No focal deficits, tone is normal in all 4 extremities. EXTREMITIES: There is no peripheral edema. No clubbing, no cyanosis. Peripheral pulses are intact. - Labs CBC & Chem 7: 10/15/21 06:15 10/15/21 06:15 Labs: Abnormal Lab Results - Last 24 Hours (Table) 10/15/21 10/15/21 Range/Units 06:15 06:15 WBC 14.1 H (3.8-10.6) k/uL Hct 48.1 H (34.0-46.0) % MCV 101.5 H (80.0-100.0) fL Neutrophils # 11.4 H (1.3-7.7) k/uL Carbon Dioxide 33 H (22-30) mmol/L BUN 27 H (7-17) mg/dL Glucose 102 H (74-99) mg/dL ALT 42 H (4-34) U/L Total Protein 5.6 L (6.3-8.2) g/dL Albumin 3.3 L (3.5-5.0) g/dL Assessment and Plan Assessment: Acute hypoxemic respiratory failure secondary to COVID-19. Chest x-ray reveals no acute pulmonary process. History of dementia History of anxiety Poor historian Hyperkalemia History of hypertension Hypothyroidism History of hyperlipidemia Plan: The patient was seen and evaluated Labs and medications reviewed Cleared for discharge from the pulmonary standpoint I have personally seen and examined the patient, performed the documentation and the assessment and plan as written. Number of minutes spent on the visit: 10.
[2021-10-15 13:39] VITALS: BP 139/60; PULSE 61
[2021-10-17] MEDS ORDERED: LEVOTHYROXINE 88 MCG TAB PO SCH (20:00)
== END 2021-10-15 14:46 | disposition home health service (06) | DRG 177 ==
LOC: EC 11:30 → 3SCARD 16:40
PROVIDERS: ADMIT Internal Medicine; ATTEND Internal Medicine
DX: U07.1 COVID-19 (principal); J96.01 Acute respiratory failure with hypoxia; E03.9 Hypothyroidism, unspecified; E78.5 Hyperlipidemia, unspecified; E87.5 Hyperkalemia; F03.90 Unspecified dementia, unspecified severity, without behavioral disturbance, psychotic disturbance, mood disturbance, and anxiety; F41.9 Anxiety disorder, unspecified; I10 Essential (primary) hypertension; Z79.82 Long term (current) use of aspirin; Z79.899 Other long term (current) drug therapy; Z87.891 Personal history of nicotine dependence
CPT/HCPCS: 36415; 36600; 71046; 80048; 80053; 80076; 82805; 83605; 83615; 83735; 84484; 85025; 85027; 85379; 85610; 85730; 86140; 87635; 93005; 94640; 94760; 96374; 99285

== ENCOUNTER 2023-02-03 22:47 | Emergency (ER) | payer MEDICARE, BC ==
[2023-02-03 23:17] VITALS: TEMP 97.9
--- NOTE | 2023-02-04 00:25 | ED ---
General Adult HPI - General Chief complaint: Altered Mental Status Stated complaint: Altered Mental Status Time Seen by Provider: 02/03/23 22:53 Source: EMS Mode of arrival: EMS Limitations: no limitations - History of Present Illness Initial comments: Alysha a pleasant 88-year-old female with a history of Parkinson's dementia who is brought to the emergency department today by ambulance from her living facility [facility]. History is provided by EMS and patient's son. Patient has a recliner chair with a lift in her room, it had gotten left in the lifted position and the patient attempted to sit on it and slid on the ground. When she slid the ground patient became quite agitated or tremulous than usual and to the staff she seemed confused and worked up sinusitis and to the hospital for evaluation. Once the patient arrived her son met her here and she was back to her normal mentation awake alert oriented to person place and events. Patient denied any pain or injuries. - Related Data Home Medications Medication Instructions Recorded Confirmed Ascorbic Acid [Vitamin C] 500 mg PO DAILY@0800 11/22/20 10/12/21 Aspirin EC [Ecotrin Low Dose] 81 mg PO DAILY@0800 11/22/20 10/12/21 Atorvastatin [Lipitor] 40 mg PO HS@199911/22/20 10/12/21 Cholecalciferol [Vitamin D3 (25 25 mcg PO DAILY@0800 11/22/20 10/12/21 Mcg = 1000 Iu)] Levothyroxine Sodium 88 mcg PO MOTUWETHFR@199911/22/20 10/12/21 Levothyroxine Sodium 132 mcg PO SUSA@199911/22/20 10/12/21 Metoprolol Succinate [Toprol XL] 25 mg PO DAILY@0800 11/22/20 10/12/21 Multivitamins, Thera [Multivitamin 1 tab PO DAILY@0800 11/22/20 10/12/21 (formulary)] ALPRAZolam [Xanax] 0.5 mg PO HS@199910/12/21 10/12/21 Acetaminophen Tab [Tylenol] 1,000 mg PO Q6HR PRN 10/12/21 10/12/21 Ammonium Lactate Cream [Lac-Hydrin 1 applic TOPICAL BID PRN 10/12/21 10/12/21 12% Cream] Citalopram Hydrobromide [CeleXA] 20 mg PO DAILY@79910/12/21 10/12/21 Cyanocobalamin/Cobamamide [Vitamin 1 tab SL DAILY@79910/12/21 10/12/21 B-12 5,000 Mcg Tab Sl] Loperamide [Imodium] 2 mg PO QID PRN 10/12/21 10/12/21 Melatonin 6 mg PO HS@199910/12/21 10/12/21 Previous Rx's Medication Instructions Recorded dexAMETHasone ORAL [Hexadrol] 6 mg PO DAILY #21 tab 10/15/21 Allergies Allergy/AdvReac Type Severity Reaction Status Date / Time No Known Allergies Allergy Verified 10/12/21 14:12 Review of Systems ROS Statement: Those systems with pertinent positive or pertinent negative responses have been documented in the HPI. ROS Other: All systems not noted in ROS Statement are negative. Past Medical History Past Medical History: Hypertension, Renal Disease, Syncope, Thyroid Disorder Additional Past Medical History / Comment(s): poor historian History of Any Multi-Drug Resistant Organisms: None Reported Past Surgical History: Cholecystectomy Past Anesthesia/Blood Transfusion Reactions: No Reported Reaction Past Psychological History: No Psychological Hx Reported Smoking Status: Former smoker Past Alcohol Use History: None Reported Past Drug Use History: None Reported - Past Family History Mother Family Medical History: Unable to Obtain General Exam - General Exam Comments Initial Comments: Physical Exam GENERAL: Patient is well-developed and well-nourished. Patient is nontoxic and well-hydrated and is in no distress. HENT: Normocephalic, Atraumatic. No trimble signs, no raccoon eyes EYES: PERRL, EOMI PULMONARY: Unlabored respirations. CARDIOVASCULAR: RRR Warm and well perfused extremities 1 Plus pitting edema bilateral lower extremities ABDOMEN: Non-distended SKIN: No rashes or bruising : Deferred NEUROLOGIC: Alert and oriented Tremor worse with activity MUSCULOSKELETAL: Moving all extremities with no apparent injury Pain with full range of motion of the ankles knees hips wrist elbow and shoulders PSYCHIATRIC: Appropriate situational anxiety Limitations: no limitations Course Vital Signs 02/03/23 02/03/23 22:56 23:16 Temperature 97.9 F Pulse Rate 64 66 Respiratory 22 20 Rate Blood Pressure 90/44 111/52 O2 Sat by Pulse 93 L 97 Oximetry Medical Decision Making - Medical Decision Making Was pt. sent in by a medical professional or institution (, JANET, AUTOMOTIVE MECHANIC, urgent care, hospital, or retirement...) When possible be specific @ -Yes by nursing staff at [facility] Did you speak to anyone other than the patient for history (EMS, parent, family, police, friend...)? What history was obtained from this source @ -EMS, son Did you review nursing and triage notes (agree or disagree)? Why? @ -I reviewed and agree with nursing and triage notes Were old charts reviewed (outside hosp., previous admission, EMS record, old EKG, old radiological studies, urgent care reports/EKG's, retirement records)? Report findings @ -No old charts were reviewed Differential Diagnosis (chest pain, altered mental status, abdominal pain women, abdominal pain men, vaginal bleeding, weakness, fever, dyspnea, syncope, headache, dizziness, GI bleed, back pain, seizure, CVA, palpatations, mental health)? @ -Differential Altered Mental Status: Hypoglycemia, DKA, hypercapnia, ETOH, overdose, CO poisoning, trauma, myxedema coma, HTN encephalopathy, infection, encephalitis, psychosis, intercranial hemorrhage, hepatic encephalopathy, meningitis, CVA, this is not meant to be an all-inclusive list EKG interpreted by me (3pts min.). @ -As above X-rays interpreted by me (1pt min.). @ -None done CT interpreted by me (1pt min.). @ -None done U/S interpreted by me (1pt. min.). @ -None done What testing was considered but not performed or refused? (CT, X-rays, U/S, labs)? Why? @ -Sheet was discussed however there is no injuries and no complaints therefore not indicated What meds were considered but not given or refused? Why? @ -None Did you discuss the management of the patient with other professionals (professionals i.e. JANET Taylor, AUTOMOTIVE MECHANIC, lab, RT, psych nurse, transition social worker, system support developer, teacher, conservation enforcement officer, comp field case manager)? Give summary @ -No Was smoking cessation discussed for >3mins.? @ -No Was critical care preformed (if so, how long)? @ -No Were there social determinants of health that impacted care today? How? (Homelessness, low income, unemployed, alcoholism, drug addiction, transportation, low edu. Level, literacy, decrease access to med. care, intermediate, rehab)? @ -No Was there de-escalation of care discussed even if they declined (Discuss DNR or withdrawal of care, Hospice)? DNR status @ -No What co-morbidities impacted this encounter? (DM, HTN, Smoking, COPD, CAD, Cancer, CVA, ARF, Chemo, Hep., AIDS, mental health diagnosis, sleep apnea, morbid obesity)? @ -None Was patient admitted / discharged? Hospital course, mention meds given and route, prescriptions, significant lab abnormalities, going to OR and other pertinent info. @ -Discharge Patient seen and evaluated history obtained from patient and son. Patient with a slip from her recliner chair onto the ground no injuries. Patient was quite agitated after this happened and seemed confused establish she is at baseline now. Undiagnosed new problem with uncertain prognosis? @ -No Drug Therapy requiring intensive monitoring for toxicity (Heparin, Nitro, Insulin, Cardizem)? @ -No Were any procedures done? @ -No Diagnosis/symptom? @ -Fall at retirement Acute, or Chronic, or Acute on Chronic? @ -Acute Uncomplicated (without systemic symptoms) or Complicated (systemic symptoms)? @ -default Side effects of treatment? @ -No Exacerbation, Progression, or Severe Exacerbation? @ -No Poses a threat to life or bodily function? How? (Chest pain, USA, SC, pneumonia, PE, COPD, DKA, ARF, appy, cholecystitis, CVA, Diverticulitis, Homicidal, Suicidal, threat to staff... and all critical care pts) @ -Unlikely Disposition Clinical Impression: Fall at retirement Disposition: HOME SELF-CARE Condition: Stable Additional Instructions: No injuries identified Is patient prescribed a controlled substance at d/c from ED?: No Referrals: Rodger Roberson MD [Primary Care Provider] - 1-2 days
[2023-02-04 01:34] VITALS: BP 106/52; PULSE 70; RESP 18
== END 2023-02-04 01:30 | disposition home or self-care (01) ==
LOC: EC 22:47
DX: M25.572 Pain in left ankle and joints of left foot (principal); I10 Essential (primary) hypertension; E07.9 Disorder of thyroid, unspecified; Z87.891 Personal history of nicotine dependence; Z79.890 Hormone replacement therapy; Z79.899 Other long term (current) drug therapy; W19.XXXA Unspecified fall, initial encounter; Y92.129 Unspecified place in nursing home as the place of occurrence of the external cause
CPT/HCPCS: 99285